=== PATIENT | male | born 1940 | race Caucasian/White ===

== ENCOUNTER 2017-08-06 18:31 | Inpatient (IN) | payer OTHER ==
[2017-08-06] MEDS ORDERED: 0.9 % SODIUM CHLORIDE 10 ML DISP.SYRIN. IV (19:45)
[2017-08-06] MEDS ORDERED: ONDANSETRON PF 4 MG/2 ML VIAL. IV (19:45)
[2017-08-06 21:18] LABS: INFLUENZA A PATIENT NEGATIVE (NEGATIVE); INFLUENZA B PATIENT NEGATIVE (NEGATIVE); OBC FLU VALID
[2017-08-06 21:19] LABS: BASO % 0 % (0-3); EOS # 0.1 x10^3/uL (0.0-0.7); EOS % 1 % (0-3); HEMATOCRIT 48.1 % (39.0-53.0); HEMOGLOBIN 16.1 g/dL (13.0-17.5); LYMPH # 0.8 x10^3/uL (1.0-4.8); LYMPH % 5 % (24-48); MEAN CORPUSCULAR HEMOGLOBIN 31 pg (25-35); MEAN CORPUSCULAR HGB CONC 33 g/dL (31-37); MEAN CORPUSCULAR VOLUME 93 fL (79-100); MONO # 0.9 x10^3/uL (0.0-1.1); MONO % 6 % (0-9); NEUT # 14.2 x10^3uL (1.8-7.7); NEUT % 89 % (31-73); PLATELET COUNT 130 x10^3/uL (140-400); RED CELL DISTRIBUTION WIDTH 14.5 % (11.5-14.5); WHITE BLOOD COUNT 15.9 x10^3/uL (4.0-11.0)
[2017-08-06 21:21] LABS: ADD MAN DIFF? YES
[2017-08-06] MEDS: IV NORMAL SALINE 1000ML BAG 1,000 ML IV (21:23)
[2017-08-06 21:28] LABS: MAGNESIUM 2.1 mg/dL (1.8-2.4)
[2017-08-06 21:28] LABS: ANION GAP 7 (6-14); BLOOD UREA NITROGEN 30 mg/dL (8-26); CALCIUM 8.7 mg/dL (8.5-10.1); CARBON DIOXIDE 30 mmol/L (21-32); CHLORIDE 91 mmol/L (98-107); GFR 72.6; GLUCOSE 72 mg/dL (70-99); POTASSIUM 4.8 mmol/L (3.5-5.1); SODIUM 128 mmol/L (136-145)
[2017-08-06 21:37] LABS: LACTIC ACID 0.7 mmol/L (0.4-2.0)
[2017-08-06 21:56] LABS: PROCALCITONIN 0.23 ng/mL (0.00-0.10)
[2017-08-06 22:06] LABS: % EOS 1 % (0-5); % LYMPHS 2 % (24-48); % MONOS 5 % (0-10); % SEGS 92 % (35-66); PLT ESTIMATE ADEQUATE (ADEQUATE)
[2017-08-06] MEDS: IV NORMAL SALINE 500ML BAG 500 ML IV (22:47)
[2017-08-06] MEDS: IPRATRPIUM/ALBUTEROL 0.5/2.5MG 3 ML NEBU. NEB (22:59)
[2017-08-07] MEDS: IV NORMAL SALINE 1000ML BAG 1,000 ML IV ×3 (04:01→23:24)
[2017-08-07] MEDS: ALBUTEROL SULFATE 2.5 MG/3 ML NEBU. NEB (04:18)
[2017-08-07 05:47] LABS: ADD MAN DIFF? NO
[2017-08-07 06:00] LABS: BASO % 0 % (0-3); EOS % 0 % (0-3); HEMATOCRIT 44.2 % (39.0-53.0); HEMOGLOBIN 14.6 g/dL (13.0-17.5); LYMPH # 0.6 x10^3/uL (1.0-4.8); LYMPH % 4 % (24-48); MEAN CORPUSCULAR HEMOGLOBIN 31 pg (25-35); MEAN CORPUSCULAR HGB CONC 33 g/dL (31-37); MEAN CORPUSCULAR VOLUME 93 fL (79-100); MONO # 1.1 x10^3/uL (0.0-1.1); MONO % 7 % (0-9); NEUT # 13.1 x10^3uL (1.8-7.7); NEUT % 88 % (31-73); PLATELET COUNT 116 x10^3/uL (140-400); RED BLOOD COUNT 4.75 x10^6/uL (4.30-5.70); RED CELL DISTRIBUTION WIDTH 14.8 % (11.5-14.5); WHITE BLOOD COUNT 14.9 x10^3/uL (4.0-11.0)
[2017-08-07 07:19] LABS: ANION GAP 11 (6-14); BLOOD UREA NITROGEN 28 mg/dL (8-26); CALCIUM 8.4 mg/dL (8.5-10.1); CARBON DIOXIDE 25 mmol/L (21-32); CHLORIDE 96 mmol/L (98-107); GFR 72.6; POTASSIUM 4.5 mmol/L (3.5-5.1); SODIUM 132 mmol/L (136-145)
[2017-08-07 07:26] LABS: GLUCOSE 39 mg/dL (70-99)
[2017-08-07 07:35] LABS: POC GLUCOSE 50 mg/dL (70-99)
[2017-08-07] MEDS: IPRATRPIUM/ALBUTEROL 0.5/2.5MG 3 ML NEBU. NEB ×4 (07:48→19:05)
[2017-08-07] MEDS: ELECTROLYTE (ICU) PROTOCOL. MC (08:10)
[2017-08-07] MEDS: ASPIRIN 325 MG TABLET PO (08:52)
[2017-08-07 09:58] LABS: POC GLUCOSE 105 mg/dL (70-99)
[2017-08-07] MEDS ORDERED: PIP/TAZO PER PHARMACY MC (11:45)
[2017-08-07] MEDS: PIPERACILLIN/TAZOBACTAM 3.375 GM in IV NORMAL SALINE 50ML 50 ML IV ×3 (12:00→23:54)
[2017-08-07] MEDS ORDERED: PIPERACILLIN/TAZOBACTAM 3.375 GM in IV DEXTROSE 5% 50 ML IV (12:00)
[2017-08-07] MEDS ORDERED: PIPERACILLIN/TAZOBACTAM 3.375 GM in IV NORMAL SALINE 50ML 50 ML IV (12:00)
[2017-08-07 15:16] LABS: MRSA BY PCR Negative (Negative)
[2017-08-07] MEDS: VANCOMYCIN 1.75 GM in IV DEXTROSE 5 %-0.2 % NACL 500 ML IV (15:24)
[2017-08-07] MEDS: VANCOMYCIN PER PHARMACY MC (15:30)
[2017-08-07] MEDS: HYDROCORTISONE SOD SUCC/PF 100 MG/2 ML VIAL. IV ×2 (15:31→21:35)
[2017-08-07 18:22] LABS: POC GLUCOSE 139 mg/dL (70-99)
[2017-08-07 20:39] LABS: POC GLUCOSE 150 mg/dL (70-99)
[2017-08-08] MEDS: VANCOMYCIN 1 GM in IV DEXTROSE 5% 250 ML IV (03:47)
[2017-08-08 05:43] LABS: BASO # 0.1 x10^3/uL (0.0-0.2); BASO % 0 % (0-3); EOS % 0 % (0-3); HEMATOCRIT 44.6 % (39.0-53.0); LYMPH # 0.5 x10^3/uL (1.0-4.8); LYMPH % 2 % (24-48); MEAN CORPUSCULAR HEMOGLOBIN 32 pg (25-35); MEAN CORPUSCULAR HGB CONC 34 g/dL (31-37); MEAN CORPUSCULAR VOLUME 94 fL (79-100); MONO # 0.4 x10^3/uL (0.0-1.1); MONO % 2 % (0-9); NEUT # 21.9 x10^3uL (1.8-7.7); NEUT % 96 % (31-73); PLATELET COUNT 107 x10^3/uL (140-400); RED BLOOD COUNT 4.75 x10^6/uL (4.30-5.70); RED CELL DISTRIBUTION WIDTH 15.2 % (11.5-14.5); WHITE BLOOD COUNT 22.8 x10^3/uL (4.0-11.0)
[2017-08-08] MEDS: PIPERACILLIN/TAZOBACTAM 3.375 GM in IV NORMAL SALINE 50ML 50 ML IV ×4 (05:50→23:01)
[2017-08-08] MEDS: HYDROCORTISONE SOD SUCC/PF 100 MG/2 ML VIAL. IV ×3 (05:50→21:18)
[2017-08-08 06:00] LABS: ADD MAN DIFF? YES
[2017-08-08 06:03] LABS: ALBUMIN 2.3 g/dL (3.4-5.0); ALBUMIN/GLOBULIN RATIO 0.6 (1.0-1.7); ALK PHOS 103 U/L (46-116); ALT (SGPT) 36 U/L (16-63); ANION GAP 6 (6-14); AST (SGOT) 29 U/L (15-37); BLOOD UREA NITROGEN 28 mg/dL (8-26); BUN/CREATININE RATIO 25 (6-20); CALCIUM 8.2 mg/dL (8.5-10.1); CARBON DIOXIDE 26 mmol/L (21-32); CHLORIDE 98 mmol/L (98-107); CREATININE 1.1 mg/dL (0.7-1.3); GFR 65.1; GLUCOSE 153 mg/dL (70-99); POTASSIUM 4.7 mmol/L (3.5-5.1); SODIUM 130 mmol/L (136-145); TOTAL BILIRUBIN 0.5 mg/dL (0.2-1.0); TOTAL PROTEIN 6.1 g/dL (6.4-8.2)
[2017-08-08] MEDS: IV NORMAL SALINE 1000ML BAG 1,000 ML IV ×4 (06:04→17:06)
[2017-08-08 06:24] LABS: THYROID STIM HORMONE (TSH) 0.369 uIU/mL (0.358-3.74)
[2017-08-08 07:22] LABS: % BANDS 2 % (0-9); % LYMPHS 3 % (24-48); % MONOS 2 % (0-10); % SEGS 93 % (35-66)
[2017-08-08 07:23] LABS: PLT ESTIMATE DECREASED (ADEQUATE)
[2017-08-08] MEDS: IPRATRPIUM/ALBUTEROL 0.5/2.5MG 3 ML NEBU. NEB ×4 (07:34→20:37)
[2017-08-08 08:33] LABS: POC GLUCOSE 130 mg/dL (70-99)
[2017-08-08] MEDS: ASPIRIN 325 MG TABLET PO (08:33)
[2017-08-08] MEDS: CALCIUM CARBONATE 500 MG TAB.CHEW PO ×2 (08:33→17:11)
[2017-08-08] MEDS: ELECTROLYTE (ICU) PROTOCOL. MC (09:00)
[2017-08-08] MEDS: POLYETHYLENE GLYCOL 3350 17 GM PACKET. PO (17:06)
[2017-08-08] MEDS: DOCUSATE SODIUM 100 MG CAPSULE. PO (21:18)
[2017-08-08] MEDS: LACTOBACILLUS RHAMNOSUS GG 1 CAPSULE. PO (21:18)
[2017-08-09] MEDS: IV NORMAL SALINE 1000ML BAG 1,000 ML IV ×2 (00:40→08:44)
[2017-08-09 06:33] LABS: HEMATOCRIT 34.9 % (39.0-53.0); HEMOGLOBIN 11.5 g/dL (13.0-17.5); MEAN CORPUSCULAR HEMOGLOBIN 31 pg (25-35); MEAN CORPUSCULAR HGB CONC 33 g/dL (31-37); MEAN CORPUSCULAR VOLUME 94 fL (79-100); PLATELET COUNT 98 x10^3/uL (140-400); RED BLOOD COUNT 3.71 x10^6/uL (4.30-5.70); RED CELL DISTRIBUTION WIDTH 15.3 % (11.5-14.5); WHITE BLOOD COUNT 16.2 x10^3/uL (4.0-11.0)
[2017-08-09] MEDS: PIPERACILLIN/TAZOBACTAM 3.375 GM in IV NORMAL SALINE 50ML 50 ML IV ×3 (06:42→18:14)
[2017-08-09] MEDS: HYDROCORTISONE SOD SUCC/PF 100 MG/2 ML VIAL. IV ×3 (06:42→21:18)
[2017-08-09 06:51] LABS: ALBUMIN 1.9 g/dL (3.4-5.0); ALBUMIN/GLOBULIN RATIO 0.6 (1.0-1.7); ALK PHOS 65 U/L (46-116); ALT (SGPT) 26 U/L (16-63); ANION GAP 6 (6-14); AST (SGOT) 25 U/L (15-37); BLOOD UREA NITROGEN 40 mg/dL (8-26); BUN/CREATININE RATIO 50 (6-20); CALCIUM 8.2 mg/dL (8.5-10.1); CARBON DIOXIDE 27 mmol/L (21-32); CHLORIDE 105 mmol/L (98-107); CREATININE 0.8 mg/dL (0.7-1.3); GLUCOSE 107 mg/dL (70-99); POTASSIUM 4.6 mmol/L (3.5-5.1); SODIUM 138 mmol/L (136-145); TOTAL BILIRUBIN 0.2 mg/dL (0.2-1.0); TOTAL PROTEIN 5.2 g/dL (6.4-8.2)
[2017-08-09] MEDS: IPRATRPIUM/ALBUTEROL 0.5/2.5MG 3 ML NEBU. NEB ×4 (07:44→18:31)
[2017-08-09] MEDS ORDERED: INFLUENZA VAX SCREEN BY RX. MC (09:00)
[2017-08-09] MEDS: ELECTROLYTE (ICU) PROTOCOL. MC (09:00)
[2017-08-09] MEDS: FLU VACC QS2017-18 (36MOS+)/PF 0.5 ML SYRINGE. VAX IM (09:00)
[2017-08-09] MEDS: DOCUSATE SODIUM 100 MG CAPSULE. PO ×2 (09:30→21:18)
[2017-08-09] MEDS: LACTOBACILLUS RHAMNOSUS GG 1 CAPSULE. PO ×2 (09:30→21:18)
[2017-08-09] MEDS: ASPIRIN 325 MG TABLET PO (09:30)
[2017-08-09] MEDS: POLYETHYLENE GLYCOL 3350 17 GM PACKET. PO (09:30)
[2017-08-09] MEDS: FUROSEMIDE 20 MG/2 ML VIAL. IVP (13:43)
[2017-08-09] MEDS ORDERED: DOCUSATE SODIUM 100 MG CAPSULE. PO (21:00)
[2017-08-10] MEDS: PIPERACILLIN/TAZOBACTAM 3.375 GM in IV NORMAL SALINE 50ML 50 ML IV ×4 (01:11→21:26)
[2017-08-10] MEDS: ALBUTEROL SULFATE 2.5 MG/3 ML NEBU. NEB (02:01)
[2017-08-10] MEDS: HYDROCORTISONE SOD SUCC/PF 100 MG/2 ML VIAL. IV ×3 (06:07→21:26)
[2017-08-10 06:38] LABS: ANION GAP 7 (6-14); BLOOD UREA NITROGEN 59 mg/dL (8-26); CARBON DIOXIDE 28 mmol/L (21-32); CHLORIDE 108 mmol/L (98-107); CREATININE 0.8 mg/dL (0.7-1.3); GLUCOSE 108 mg/dL (70-99); SODIUM 143 mmol/L (136-145)
[2017-08-10] MEDS: IPRATRPIUM/ALBUTEROL 0.5/2.5MG 3 ML NEBU. NEB ×4 (07:44→20:26)
[2017-08-10] MEDS: ASPIRIN 325 MG TABLET PO (08:00)
[2017-08-10 08:55] LABS: RED BLOOD COUNT 1.86 x10^6/uL (4.30-5.70); WHITE BLOOD COUNT 16.5 x10^3/uL (4.0-11.0)
[2017-08-10 08:56] LABS: HEMATOCRIT 17.5 % (39.0-53.0); HEMOGLOBIN 5.8 g/dL (13.0-17.5); MEAN CORPUSCULAR HEMOGLOBIN 31 pg (25-35); MEAN CORPUSCULAR HGB CONC 33 g/dL (31-37); MEAN CORPUSCULAR VOLUME 94 fL (79-100); PLATELET COUNT 103 x10^3/uL (140-400); RED CELL DISTRIBUTION WIDTH 14.8 % (11.5-14.5)
[2017-08-10] MEDS: ELECTROLYTE (ICU) PROTOCOL. MC (09:00)
[2017-08-10] MEDS: POLYETHYLENE GLYCOL 3350 17 GM PACKET. PO (09:00)
[2017-08-10] MEDS ORDERED: POLYETHYLENE GLYCOL 3350 17 GM PACKET. PO (09:00)
[2017-08-10 10:02] LABS: ADD MAN DIFF? NO
[2017-08-10 10:06] LABS: BASO % 0 % (0-3); EOS % 0 % (0-3); LYMPH # 0.7 x10^3/uL (1.0-4.8); LYMPH % 4 % (24-48); MEAN CORPUSCULAR HEMOGLOBIN 31 pg (25-35); MEAN CORPUSCULAR HGB CONC 33 g/dL (31-37); MEAN CORPUSCULAR VOLUME 94 fL (79-100); MONO % 6 % (0-9); NEUT # 15.9 x10^3uL (1.8-7.7); NEUT % 90 % (31-73); PLATELET COUNT 99 x10^3/uL (140-400); RED BLOOD COUNT 1.74 x10^6/uL (4.30-5.70); RED CELL DISTRIBUTION WIDTH 15.5 % (11.5-14.5); WHITE BLOOD COUNT 17.6 x10^3/uL (4.0-11.0)
[2017-08-10 10:17] LABS: HEMATOCRIT 16.4 % (39.0-53.0); HEMOGLOBIN 5.4 g/dL (13.0-17.5)
[2017-08-10 13:42] LABS: INR 1.2 (0.8-1.1); PARTIAL THROMBOPLASTIN TIME 25 SEC (24-38); PROTHROMBIN TIME PATIENT 14.8 SEC (11.7-14.0)
[2017-08-10] MEDS: METOCLOPRAMIDE HCL 10 MG/2 ML VIAL. IV (13:51)
[2017-08-10] MEDS: PANTOPRAZOLE IV PUSH 40 MG VIAL. IVP (13:51)
[2017-08-10] MEDS ORDERED: PROPOFOL 20 ML IV (14:14)
[2017-08-10] MEDS ORDERED: LIDOCAINE 2% 100 MG/5 ML SYRINGE. (14:14)
[2017-08-10] MEDS: EPINEPHrine SYRINGE 1 MG/10 ML SYRINGE SQ (14:35)
[2017-08-10] MEDS ORDERED: EPINEPHrine SYRINGE 1 MG/10 ML SYRINGE (15:01)
[2017-08-10] MEDS ORDERED: NOREPINEPHRIN PREMIX 250 ML IV (15:15)
[2017-08-10] MEDS ORDERED: NOREPINEPHRINE PREMIX 8 MG/250 ML BAG. IV (15:15)
[2017-08-10] MEDS: MIDAZOLAM 100MG/100ML PREMIX 100 ML IV (15:20)
[2017-08-10] MEDS: PANTOPRAZOLE SODIUM IV DRIP 80 MG in IV NORMAL SALINE 100ML 100 ML IV (16:10)
[2017-08-10 16:24] LABS: BASE EXCESS ABG -3 mmol/L (-3-3); HCO3 ABG 25 mmol/L (21-28); PH ABG 7.23 (7.35-7.45); PO2 ABG 277 mmHg (65-108); SAT O2 ABG 99 % (92-99)
[2017-08-10 16:26] LABS: FIO2 ABG 100; PCO2 ABG 61 mmHg (35-46)
[2017-08-10 18:34] LABS: HEMOGLOBIN 9.7 g/dL (13.0-17.5)
[2017-08-10 19:35] LABS: LACTIC ACID 3.2 mmol/L (0.4-2.0)
[2017-08-10] MEDS: IV NORMAL SALINE 1000ML BAG 1,000 ML IV ×2 (19:58→20:48)
[2017-08-10] MEDS: DOCUSATE SODIUM 100 MG CAPSULE. PO (20:27)
[2017-08-10] MEDS: LACTOBACILLUS RHAMNOSUS GG 1 CAPSULE. PO (20:27)
[2017-08-10 23:36] LABS: LACTIC ACID 2.6 mmol/L (0.4-2.0)
[2017-08-11] MEDS: PIPERACILLIN/TAZOBACTAM 3.375 GM in IV NORMAL SALINE 50ML 50 ML IV ×4 (00:24→17:35)
[2017-08-11] MEDS: PANTOPRAZOLE SODIUM IV DRIP 80 MG in IV NORMAL SALINE 100ML 100 ML IV ×3 (00:25→21:51)
[2017-08-11] MEDS: NOREPINEPHRIN PREMIX 250 ML IV (00:25)
[2017-08-11] MEDS: IV NORMAL SALINE 1000ML BAG 1,000 ML IV ×4 (04:23→19:30)
[2017-08-11] MEDS: MIDAZOLAM 100MG/100ML PREMIX 100 ML IV (04:24)
[2017-08-11 04:42] LABS: BASO % 0 % (0-3); EOS % 0 % (0-3); LYMPH # 0.9 x10^3/uL (1.0-4.8); LYMPH % 3 % (24-48); MEAN CORPUSCULAR HEMOGLOBIN 31 pg (25-35); MEAN CORPUSCULAR HGB CONC 35 g/dL (31-37); MEAN CORPUSCULAR VOLUME 91 fL (79-100); MONO % 7 % (0-9); NEUT # 25.6 x10^3uL (1.8-7.7); NEUT % 90 % (31-73); PLATELET COUNT 128 x10^3/uL (140-400); RED BLOOD COUNT 2.87 x10^6/uL (4.30-5.70); RED CELL DISTRIBUTION WIDTH 15.1 % (11.5-14.5); WHITE BLOOD COUNT 28.6 x10^3/uL (4.0-11.0)
[2017-08-11 05:06] LABS: ADD MAN DIFF? YES
[2017-08-11 05:09] LABS: ALBUMIN 1.7 g/dL (3.4-5.0); ALBUMIN/GLOBULIN RATIO 0.6 (1.0-1.7); ALK PHOS 51 U/L (46-116); ALT (SGPT) 24 U/L (16-63); ANION GAP 7 (6-14); AST (SGOT) 28 U/L (15-37); BLOOD UREA NITROGEN 62 mg/dL (8-26); BUN/CREATININE RATIO 56 (6-20); CALCIUM 7.2 mg/dL (8.5-10.1); CARBON DIOXIDE 25 mmol/L (21-32); CHLORIDE 115 mmol/L (98-107); CREATININE 1.1 mg/dL (0.7-1.3); GFR 65.1; GLUCOSE 137 mg/dL (70-99); SODIUM 147 mmol/L (136-145); TOTAL BILIRUBIN 0.5 mg/dL (0.2-1.0); TOTAL PROTEIN 4.4 g/dL (6.4-8.2)
[2017-08-11] MEDS: HYDROCORTISONE SOD SUCC/PF 100 MG/2 ML VIAL. IV ×3 (05:40→21:25)
[2017-08-11] MEDS: IPRATRPIUM/ALBUTEROL 0.5/2.5MG 3 ML NEBU. NEB ×4 (07:49→19:41)
[2017-08-11] MEDS: DOCUSATE SODIUM 100 MG CAPSULE. PO ×2 (09:00→20:26)
[2017-08-11] MEDS: ELECTROLYTE (ICU) PROTOCOL. MC (09:00)
[2017-08-11] MEDS: POLYETHYLENE GLYCOL 3350 17 GM PACKET. PO (09:00)
[2017-08-11 09:25] LABS: BASE EXCESS ABG 0 mmol/L (-3-3); HCO3 ABG 23 mmol/L (21-28); PCO2 ABG 32 mmHg (35-46); PH ABG 7.48 (7.35-7.45); PO2 ABG 90 mmHg (65-108); SAT O2 ABG 96 % (92-99)
[2017-08-11 10:02] LABS: FIO2 ABG 40
[2017-08-11 10:24] LABS: % LYMPHS 4 % (24-48); % MONOS 3 % (0-10); % SEGS 93 % (35-66); PLT ESTIMATE ADEQUATE (ADEQUATE)
[2017-08-11 10:25] LABS: HYPOCHROMIA SLIGHT
[2017-08-11 12:54] LABS: HEMATOCRIT 23.2 % (39.0-53.0)
[2017-08-11 12:54] LABS: HEMOGLOBIN 7.9 g/dL (13.0-17.5)
[2017-08-11] MEDS: ASPIRIN 325 MG TABLET PO (13:21)
[2017-08-11] MEDS: LACTOBACILLUS RHAMNOSUS GG 1 CAPSULE. PO ×2 (13:21→21:25)
[2017-08-11 14:27] LABS: HEMOGLOBIN 7.5 g/dL (13.0-17.5)
[2017-08-11] MEDS ORDERED: PROPOFOL 100 ML IV (17:30)
[2017-08-11] MEDS: PROPOFOL 100 ML IV (17:31)
[2017-08-11 21:13] LABS: MRSA BY PCR Negative (Negative)
[2017-08-11 22:47] LABS: HEMOGLOBIN 6.8 g/dL (13.0-17.5)
[2017-08-11 23:27] LABS: IMMEDIATE SPIN CROSSMATCH 1 6
[2017-08-12] MEDS: PIPERACILLIN/TAZOBACTAM 3.375 GM in IV NORMAL SALINE 50ML 50 ML IV ×4 (00:11→23:34)
[2017-08-12] MEDS: PROPOFOL 100 ML IV ×2 (00:12→19:19)
[2017-08-12] MEDS: IV NORMAL SALINE 1000ML BAG 1,000 ML IV (00:12)
[2017-08-12 03:50] LABS: HEMATOCRIT 21.5 % (39.0-53.0); HEMOGLOBIN 7.4 g/dL (13.0-17.5); MEAN CORPUSCULAR HEMOGLOBIN 31 pg (25-35); MEAN CORPUSCULAR HGB CONC 35 g/dL (31-37); MEAN CORPUSCULAR VOLUME 90 fL (79-100); PLATELET COUNT 97 x10^3/uL (140-400); RED CELL DISTRIBUTION WIDTH 14.6 % (11.5-14.5); WHITE BLOOD COUNT 17.5 x10^3/uL (4.0-11.0)
[2017-08-12 04:08] LABS: ALBUMIN 1.4 g/dL (3.4-5.0); ALBUMIN/GLOBULIN RATIO 0.6 (1.0-1.7); ALK PHOS 43 U/L (46-116); ALT (SGPT) 11 U/L (16-63); ANION GAP 7 (6-14); AST (SGOT) 25 U/L (15-37); BLOOD UREA NITROGEN 42 mg/dL (8-26); BUN/CREATININE RATIO 47 (6-20); CALCIUM 6.7 mg/dL (8.5-10.1); CARBON DIOXIDE 26 mmol/L (21-32); CHLORIDE 122 mmol/L (98-107); CREATININE 0.9 mg/dL (0.7-1.3); GLUCOSE 119 mg/dL (70-99); SODIUM 155 mmol/L (136-145); TOTAL BILIRUBIN 0.4 mg/dL (0.2-1.0); TOTAL PROTEIN 3.8 g/dL (6.4-8.2)
[2017-08-12] MEDS: HYDROCORTISONE SOD SUCC/PF 100 MG/2 ML VIAL. IV ×3 (05:48→21:10)
[2017-08-12] MEDS: IPRATRPIUM/ALBUTEROL 0.5/2.5MG 3 ML NEBU. NEB ×5 (07:10→19:43)
[2017-08-12 07:23] LABS: BASE EXCESS ABG 0 mmol/L (-3-3); HCO3 ABG 23 mmol/L (21-28); PCO2 ABG 31 mmHg (35-46); PH ABG 7.48 (7.35-7.45); PO2 ABG 78 mmHg (65-108); SAT O2 ABG 95 % (92-99)
[2017-08-12] MEDS: POLYETHYLENE GLYCOL 3350 17 GM PACKET. PO (07:35)
[2017-08-12] MEDS: ASPIRIN 325 MG TABLET PO (08:00)
[2017-08-12] MEDS: DOCUSATE SODIUM 100 MG CAPSULE. PO ×2 (08:08→21:10)
[2017-08-12] MEDS: LACTOBACILLUS RHAMNOSUS GG 1 CAPSULE. PO ×2 (08:08→21:10)
[2017-08-12] MEDS: ELECTROLYTE (ICU) PROTOCOL. MC (08:23)
[2017-08-12 08:25] LABS: FIO2 ABG 40
[2017-08-12] MEDS ORDERED: DEXTROSE 5% IV (08:30)
[2017-08-12] MEDS ORDERED: POTASSIUM CHLORIDE IV (08:30)
[2017-08-12] MEDS: DEXTROSE 5% IV (08:39)
[2017-08-12] MEDS: POTASSIUM CHLORIDE IV (08:39)
[2017-08-12] MEDS: PANTOPRAZOLE SODIUM IV DRIP 80 MG in IV NORMAL SALINE 100ML 100 ML IV ×2 (08:41→18:12)
[2017-08-12 13:43] LABS: HEMOGLOBIN 8.6 g/dL (13.0-17.5)
[2017-08-12] MEDS: POTASSIUM CHLORIDE 40 MEQ in IV DEXTROSE 5% 1,000 ML IV (18:12)
[2017-08-12 21:21] LABS: HEMOGLOBIN 7.8 g/dL (13.0-17.5)
[2017-08-13] MEDS: PROPOFOL 100 ML IV ×2 (00:53→05:09)
[2017-08-13] MEDS: POTASSIUM CHLORIDE 40 MEQ in IV DEXTROSE 5% 1,000 ML IV ×4 (02:54→22:05)
[2017-08-13 05:33] LABS: HEMOGLOBIN 7.5 g/dL (13.0-17.5)
[2017-08-13 05:47] LABS: ANION GAP 7 (6-14); BLOOD UREA NITROGEN 27 mg/dL (8-26); CALCIUM 6.9 mg/dL (8.5-10.1); CARBON DIOXIDE 25 mmol/L (21-32); CHLORIDE 120 mmol/L (98-107); CREATININE 0.8 mg/dL (0.7-1.3); GLUCOSE 190 mg/dL (70-99); POTASSIUM 3.6 mmol/L (3.5-5.1); SODIUM 152 mmol/L (136-145)
[2017-08-13] MEDS: HYDROCORTISONE SOD SUCC/PF 100 MG/2 ML VIAL. IV ×3 (06:13→20:54)
[2017-08-13] MEDS: PANTOPRAZOLE SODIUM IV DRIP 80 MG in IV NORMAL SALINE 100ML 100 ML IV ×2 (06:13→16:28)
[2017-08-13] MEDS: PIPERACILLIN/TAZOBACTAM 3.375 GM in IV NORMAL SALINE 50ML 50 ML IV ×4 (06:13→23:54)
[2017-08-13] MEDS: ASPIRIN 325 MG TABLET PO (08:00)
[2017-08-13 08:21] LABS: BASE EXCESS ABG -2 mmol/L (-3-3); HCO3 ABG 22 mmol/L (21-28); PCO2 ABG 33 mmHg (35-46); PH ABG 7.45 (7.35-7.45); PO2 ABG 82 mmHg (65-108); SAT O2 ABG 95 % (92-99)
[2017-08-13] MEDS: DOCUSATE SODIUM 100 MG CAPSULE. PO ×2 (09:00→20:58)
[2017-08-13] MEDS: POLYETHYLENE GLYCOL 3350 17 GM PACKET. PO (09:00)
[2017-08-13] MEDS: ELECTROLYTE (ICU) PROTOCOL. MC (09:00)
[2017-08-13] MEDS: LACTOBACILLUS RHAMNOSUS GG 1 CAPSULE. PO ×2 (09:00→20:58)
[2017-08-13 09:24] LABS: FIO2 ABG 40
[2017-08-13 09:34] LABS: BASE EXCESS ABG -2 mmol/L (-3-3); HCO3 ABG 23 mmol/L (21-28); PCO2 ABG 38 mmHg (35-46); PO2 ABG 89 mmHg (65-108); SAT O2 ABG 95 % (92-99)
[2017-08-13 09:35] LABS: FIO2 ABG 40
[2017-08-13] MEDS: IPRATRPIUM/ALBUTEROL 0.5/2.5MG 3 ML NEBU. NEB ×3 (11:35→19:21)
[2017-08-13 15:06] LABS: HEMATOCRIT 24.1 % (39.0-53.0)
[2017-08-13 15:06] LABS: HEMOGLOBIN 8.2 g/dL (13.0-17.5)
[2017-08-13] MEDS: FUROSEMIDE 40 MG/4 ML VIAL. IVP (16:27)
[2017-08-13] MEDS: BUDESONIDE 0.5 MG/2 ML NEBU. NEB (19:21)
[2017-08-13] MEDS ORDERED: EPINEPHrine SYRINGE 1 MG/10 ML SYRINGE (19:24)
[2017-08-13] MEDS ORDERED: MIDAZOLAM HCL/PF 5 MG/5 ML VIAL. (19:24)
[2017-08-13] MEDS ORDERED: SODIUM BICARB ADULT 8.4% 50 MEQ/50 ML DISP.SYRIN. (19:24)
[2017-08-14] MEDS: PANTOPRAZOLE SODIUM IV DRIP 80 MG in IV NORMAL SALINE 100ML 100 ML IV ×2 (00:42→14:16)
[2017-08-14 05:42] LABS: HEMATOCRIT 22.9 % (39.0-53.0); HEMOGLOBIN 7.8 g/dL (13.0-17.5); MEAN CORPUSCULAR HEMOGLOBIN 32 pg (25-35); MEAN CORPUSCULAR HGB CONC 34 g/dL (31-37); MEAN CORPUSCULAR VOLUME 93 fL (79-100); PLATELET COUNT 145 x10^3/uL (140-400); RED BLOOD COUNT 2.46 x10^6/uL (4.30-5.70); RED CELL DISTRIBUTION WIDTH 15.5 % (11.5-14.5); WHITE BLOOD COUNT 23.8 x10^3/uL (4.0-11.0)
[2017-08-14 05:53] LABS: ANION GAP 6 (6-14); BLOOD UREA NITROGEN 19 mg/dL (8-26); CARBON DIOXIDE 29 mmol/L (21-32); CHLORIDE 117 mmol/L (98-107); CREATININE 0.8 mg/dL (0.7-1.3); GLUCOSE 138 mg/dL (70-99); POTASSIUM 3.6 mmol/L (3.5-5.1); SODIUM 152 mmol/L (136-145)
[2017-08-14] MEDS: HYDROCORTISONE SOD SUCC/PF 100 MG/2 ML VIAL. IV ×3 (06:19→21:44)
[2017-08-14] MEDS: PIPERACILLIN/TAZOBACTAM 3.375 GM in IV NORMAL SALINE 50ML 50 ML IV ×3 (06:19→18:33)
[2017-08-14] MEDS: POTASSIUM CHLORIDE 40 MEQ in IV DEXTROSE 5% 1,000 ML IV ×2 (06:19→15:54)
[2017-08-14] MEDS: BUDESONIDE 0.5 MG/2 ML NEBU. NEB ×2 (07:35→19:37)
[2017-08-14] MEDS: IPRATRPIUM/ALBUTEROL 0.5/2.5MG 3 ML NEBU. NEB ×4 (07:35→19:37)
[2017-08-14] MEDS: ASPIRIN 325 MG TABLET PO (08:00)
[2017-08-14] MEDS: ELECTROLYTE (ICU) PROTOCOL. MC (08:28)
[2017-08-14] MEDS: POLYETHYLENE GLYCOL 3350 17 GM PACKET. PO (08:28)
[2017-08-14] MEDS: DOCUSATE SODIUM 100 MG CAPSULE. PO ×2 (08:28→21:00)
[2017-08-14] MEDS: LACTOBACILLUS RHAMNOSUS GG 1 CAPSULE. PO ×2 (08:28→21:00)
[2017-08-14] MEDS: NOREPINEPHRIN PREMIX 250 ML IV ×2 (10:09→18:34)
[2017-08-14] MEDS: IV 1/2 NORMAL SALINE 1,000 ML IV (10:13)
[2017-08-14 12:13] LABS: BASE EXCESS ABG 0 mmol/L (-3-3); HCO3 ABG 24 mmol/L (21-28); PCO2 ABG 37 mmHg (35-46); PH ABG 7.43 (7.35-7.45); PO2 ABG 64 mmHg (65-108); SAT O2 ABG 91 % (92-99)
[2017-08-14 12:23] LABS: FIO2 ABG 28
[2017-08-14 12:41] LABS: MEAN CORPUSCULAR HEMOGLOBIN 31 pg (25-35); MEAN CORPUSCULAR HGB CONC 33 g/dL (31-37); MEAN CORPUSCULAR VOLUME 94 fL (79-100); PLATELET COUNT 156 x10^3/uL (140-400); RED BLOOD COUNT 1.65 x10^6/uL (4.30-5.70); RED CELL DISTRIBUTION WIDTH 14.9 % (11.5-14.5); WHITE BLOOD COUNT 30.6 x10^3/uL (4.0-11.0)
[2017-08-14 12:50] LABS: HEMATOCRIT 15.5 % (39.0-53.0); HEMOGLOBIN 5.1 g/dL (13.0-17.5)
[2017-08-14] MEDS: IV NORMAL SALINE 1000ML BAG 1,000 ML IV (13:36)
[2017-08-14] MEDS: IV NORMAL SALINE 500ML BAG 500 ML IV ×2 (13:36→21:48)
[2017-08-14 14:22] LABS: INR 1.2 (0.8-1.1); PROTHROMBIN TIME PATIENT 14.6 SEC (11.7-14.0)
[2017-08-14 14:30] LABS: IMMEDIATE SPIN CROSSMATCH 1 5
[2017-08-14] MEDS: EPINEPHrine SYRINGE 1 MG/10 ML SYRINGE IV (14:59)
[2017-08-14] MEDS ORDERED: LIDOCAINE WITH 8.4% SOD BICARB 3 ML DISP.SYRIN. (15:21)
[2017-08-14] MEDS ORDERED: IOHEXOL 300 MG/ML 100ML VIAL. (15:21)
[2017-08-14] MEDS ORDERED: EPINEPHrine SYRINGE 1 MG/10 ML SYRINGE (15:33)
[2017-08-14 16:37] LABS: HEMATOCRIT 29.4 % (39.0-53.0); HEMOGLOBIN 9.8 g/dL (13.0-17.5); MEAN CORPUSCULAR HEMOGLOBIN 31 pg (25-35); MEAN CORPUSCULAR HGB CONC 33 g/dL (31-37); MEAN CORPUSCULAR VOLUME 93 fL (79-100); PLATELET COUNT 157 x10^3/uL (140-400); RED BLOOD COUNT 3.16 x10^6/uL (4.30-5.70); RED CELL DISTRIBUTION WIDTH 13.9 % (11.5-14.5); WHITE BLOOD COUNT 34.8 x10^3/uL (4.0-11.0)
[2017-08-14 20:05] LABS: HEMOGLOBIN 8.7 g/dL (13.0-17.5); MEAN CORPUSCULAR HGB CONC 33 g/dL (31-37)
[2017-08-14] MEDS: FUROSEMIDE 20 MG/2 ML VIAL. IVP (21:45)
[2017-08-15] MEDS: PANTOPRAZOLE SODIUM IV DRIP 80 MG in IV NORMAL SALINE 100ML 100 ML IV ×2 (01:02→13:07)
[2017-08-15] MEDS: PIPERACILLIN/TAZOBACTAM 3.375 GM in IV NORMAL SALINE 50ML 50 ML IV ×4 (01:02→17:58)
[2017-08-15] MEDS: POTASSIUM CHLORIDE 40 MEQ in IV DEXTROSE 5% 1,000 ML IV ×2 (01:03→10:43)
[2017-08-15 01:04] LABS: HEMATOCRIT 22.9 % (39.0-53.0); HEMOGLOBIN 7.8 g/dL (13.0-17.5); MEAN CORPUSCULAR HGB CONC 34 g/dL (31-37)
[2017-08-15 05:59] LABS: ADD MAN DIFF? NO
[2017-08-15] MEDS: HYDROCORTISONE SOD SUCC/PF 100 MG/2 ML VIAL. IV (06:05)
[2017-08-15 06:14] LABS: ANION GAP 5 (6-14); BLOOD UREA NITROGEN 34 mg/dL (8-26); CALCIUM 6.6 mg/dL (8.5-10.1); CARBON DIOXIDE 25 mmol/L (21-32); CHLORIDE 115 mmol/L (98-107); CREATININE 1.4 mg/dL (0.7-1.3); GFR 49.3; GLUCOSE 142 mg/dL (70-99); POTASSIUM 4.8 mmol/L (3.5-5.1); SODIUM 145 mmol/L (136-145)
[2017-08-15 06:17] LABS: BASO % 0 % (0-3); EOS % 0 % (0-3); HEMOGLOBIN 7.7 g/dL (13.0-17.5); LYMPH # 1.8 x10^3/uL (1.0-4.8); LYMPH % 8 % (24-48); MEAN CORPUSCULAR HEMOGLOBIN 32 pg (25-35); MEAN CORPUSCULAR HGB CONC 35 g/dL (31-37); MEAN CORPUSCULAR VOLUME 93 fL (79-100); MONO # 1.7 x10^3/uL (0.0-1.1); MONO % 7 % (0-9); NEUT # 19.3 x10^3uL (1.8-7.7); NEUT % 85 % (31-73); PLATELET COUNT 154 x10^3/uL (140-400); RED BLOOD COUNT 2.38 x10^6/uL (4.30-5.70); RED CELL DISTRIBUTION WIDTH 13.7 % (11.5-14.5); WHITE BLOOD COUNT 22.8 x10^3/uL (4.0-11.0)
[2017-08-15] MEDS: ALBUTEROL SULFATE 2.5 MG/3 ML NEBU. NEB (06:25)
[2017-08-15] MEDS: DOCUSATE SODIUM 100 MG CAPSULE. PO ×2 (07:32→21:00)
[2017-08-15] MEDS: POLYETHYLENE GLYCOL 3350 17 GM PACKET. PO (07:32)
[2017-08-15] MEDS: ASPIRIN 325 MG TABLET PO (07:32)
[2017-08-15] MEDS: LACTOBACILLUS RHAMNOSUS GG 1 CAPSULE. PO ×2 (07:32→21:00)
[2017-08-15] MEDS: ELECTROLYTE (ICU) PROTOCOL. MC (07:33)
[2017-08-15] MEDS: IPRATRPIUM/ALBUTEROL 0.5/2.5MG 3 ML NEBU. NEB ×4 (08:05→19:52)
[2017-08-15] MEDS: BUDESONIDE 0.5 MG/2 ML NEBU. NEB ×2 (08:05→19:52)
[2017-08-15] MEDS: methylPREDNISolone SOD SUCC PF 40 MG/ML VIAL. IV (14:00)
[2017-08-15 19:48] LABS: HEMOGLOBIN 7.1 g/dL (13.0-17.5)
[2017-08-15 19:49] LABS: HEMATOCRIT 21.9 % (39.0-53.0)
[2017-08-16] MEDS: PANTOPRAZOLE SODIUM IV DRIP 80 MG in IV NORMAL SALINE 100ML 100 ML IV ×4 (01:13→20:10)
[2017-08-16] MEDS: PIPERACILLIN/TAZOBACTAM 3.375 GM in IV NORMAL SALINE 50ML 50 ML IV ×5 (01:13→23:55)
[2017-08-16] MEDS: POTASSIUM CHLORIDE 40 MEQ in IV DEXTROSE 5% 1,000 ML IV ×4 (01:14→14:30)
[2017-08-16] MEDS: methylPREDNISolone SOD SUCC PF 40 MG/ML VIAL. IV ×4 (01:14→21:43)
[2017-08-16 06:38] LABS: BASO # 0.1 x10^3/uL (0.0-0.2); BASO % 0 % (0-3); EOS % 0 % (0-3); HEMATOCRIT 26.6 % (39.0-53.0); LYMPH # 0.9 x10^3/uL (1.0-4.8); LYMPH % 3 % (24-48); MEAN CORPUSCULAR HEMOGLOBIN 31 pg (25-35); MEAN CORPUSCULAR HGB CONC 34 g/dL (31-37); MEAN CORPUSCULAR VOLUME 91 fL (79-100); MONO # 1.1 x10^3/uL (0.0-1.1); MONO % 4 % (0-9); NEUT # 25.5 x10^3uL (1.8-7.7); NEUT % 92 % (31-73); PLATELET COUNT 190 x10^3/uL (140-400); RED BLOOD COUNT 2.91 x10^6/uL (4.30-5.70); RED CELL DISTRIBUTION WIDTH 14.9 % (11.5-14.5); WHITE BLOOD COUNT 27.6 x10^3/uL (4.0-11.0)
[2017-08-16 06:42] LABS: ADD MAN DIFF? YES
[2017-08-16 07:01] LABS: ALBUMIN 1.7 g/dL (3.4-5.0); ALBUMIN/GLOBULIN RATIO 0.6 (1.0-1.7); ALK PHOS 71 U/L (46-116); ALT (SGPT) 39 U/L (16-63); ANION GAP 9 (6-14); AST (SGOT) 51 U/L (15-37); BLOOD UREA NITROGEN 32 mg/dL (8-26); BUN/CREATININE RATIO 27 (6-20); CALCIUM 7.1 mg/dL (8.5-10.1); CARBON DIOXIDE 23 mmol/L (21-32); CHLORIDE 115 mmol/L (98-107); CREATININE 1.2 mg/dL (0.7-1.3); GFR 58.9; GLUCOSE 114 mg/dL (70-99); POTASSIUM 4.8 mmol/L (3.5-5.1); SODIUM 147 mmol/L (136-145); TOTAL BILIRUBIN 0.6 mg/dL (0.2-1.0); TOTAL PROTEIN 4.7 g/dL (6.4-8.2)
[2017-08-16] MEDS: BUDESONIDE 0.5 MG/2 ML NEBU. NEB ×2 (07:57→19:44)
[2017-08-16] MEDS: IPRATRPIUM/ALBUTEROL 0.5/2.5MG 3 ML NEBU. NEB ×4 (07:57→19:44)
[2017-08-16] MEDS: POLYETHYLENE GLYCOL 3350 17 GM PACKET. PO (08:31)
[2017-08-16] MEDS: ELECTROLYTE (ICU) PROTOCOL. MC (08:31)
[2017-08-16] MEDS: DOCUSATE SODIUM 100 MG CAPSULE. PO ×2 (08:31→21:00)
[2017-08-16] MEDS ORDERED: MAGNESIUM SULFATE 2GM 50 ML IV (08:45)
[2017-08-16] MEDS ORDERED: LORazepam 1 MG TABLET PO ×2 (08:45)
[2017-08-16] MEDS: LACTOBACILLUS RHAMNOSUS GG 1 CAPSULE. PO ×2 (09:00→21:00)
[2017-08-16 09:47] LABS: % BANDS 3 % (0-9); % LYMPHS 1 % (24-48); % MONOS 2 % (0-10); % SEGS 94 % (35-66)
[2017-08-16 09:48] LABS: ANISOCYTOSIS MOD; PLT ESTIMATE ADEQUATE (ADEQUATE)
[2017-08-16 09:54] LABS: PREALBUMIN 20.5 mg/dL (16.0-42.0)
[2017-08-16] MEDS ORDERED: PROPOFOL 10 MG/ML (20ML) VIAL. IV (12:00)
[2017-08-16] MEDS: FUROSEMIDE 20 MG/2 ML VIAL. IVP (12:47)
[2017-08-16 13:17] LABS: BILIRUBIN,URINE NEGATIVE (NEG); CLARITY,URINE CLEAR; COLOR,URINE YELLOW; GLUCOSE,URINE NEGATIVE (NEG); NITRITE,URINE NEGATIVE (NEG); PH,URINE 5.5; PROTEIN,URINE NEGATIVE (NEG-TRACE); UROBILINOGEN,URINE 0.2 mg/dL (0.2 mg/dL)
[2017-08-16 13:23] LABS: SQUAMOUS EPITHELIAL CELL,UR OCC /LPF
[2017-08-16 13:24] LABS: BACTERIA,URINE 0 /HPF (0-FEW); RBC,URINE 0 /HPF (0-2); WBC,URINE OCC /HPF (0-4)
[2017-08-16 17:29] LABS: HEMOGLOBIN 8.8 g/dL (13.0-17.5)
[2017-08-16 17:29] LABS: HEMATOCRIT 26.2 % (39.0-53.0)
[2017-08-16] MEDS: AMINO AC 3%/ELECTROLYTE/GLYCER 1,000 ML IV (17:37)
[2017-08-16 21:10] LABS: TOTAL PROTEIN CREATININE RATIO 344 mg/g creat (0-200); UR CREATININE RD 78.1 mg/dL (Not Estab.); UR PROTEIN RD 26.9 mg/dL (Not Estab.)
[2017-08-17] MEDS: IPRATRPIUM/ALBUTEROL 0.5/2.5MG 3 ML NEBU. NEB ×5 (02:43→19:28)
[2017-08-17 05:10] LABS: HEMATOCRIT 24.8 % (39.0-53.0); HEMOGLOBIN 8.4 g/dL (13.0-17.5); MEAN CORPUSCULAR HEMOGLOBIN 31 pg (25-35); MEAN CORPUSCULAR HGB CONC 34 g/dL (31-37); MEAN CORPUSCULAR VOLUME 92 fL (79-100); PLATELET COUNT 239 x10^3/uL (140-400); RED BLOOD COUNT 2.68 x10^6/uL (4.30-5.70); RED CELL DISTRIBUTION WIDTH 15.1 % (11.5-14.5)
[2017-08-17] MEDS: AMINO AC 3%/ELECTROLYTE/GLYCER 1,000 ML IV ×2 (05:29→17:32)
[2017-08-17] MEDS: PIPERACILLIN/TAZOBACTAM 3.375 GM in IV NORMAL SALINE 50ML 50 ML IV ×3 (05:30→17:32)
[2017-08-17] MEDS: methylPREDNISolone SOD SUCC PF 40 MG/ML VIAL. IV (05:30)
[2017-08-17 05:59] LABS: ALBUMIN 1.7 g/dL (3.4-5.0); ALBUMIN/GLOBULIN RATIO 0.6 (1.0-1.7); ALK PHOS 68 U/L (46-116); ALT (SGPT) 44 U/L (16-63); ANION GAP 6 (6-14); AST (SGOT) 45 U/L (15-37); BLOOD UREA NITROGEN 30 mg/dL (8-26); BUN/CREATININE RATIO 27 (6-20); CALCIUM 7.4 mg/dL (8.5-10.1); CARBON DIOXIDE 28 mmol/L (21-32); CHLORIDE 113 mmol/L (98-107); CREATININE 1.1 mg/dL (0.7-1.3); GFR 65.1; GLUCOSE 117 mg/dL (70-99); MAGNESIUM 2.1 mg/dL (1.8-2.4); PHOSPHORUS 4.2 mg/dL (2.6-4.7); POTASSIUM 4.5 mmol/L (3.5-5.1); SODIUM 147 mmol/L (136-145); TOTAL BILIRUBIN 0.4 mg/dL (0.2-1.0); TOTAL PROTEIN 4.7 g/dL (6.4-8.2)
[2017-08-17] MEDS: POLYETHYLENE GLYCOL 3350 17 GM PACKET. PO (08:17)
[2017-08-17] MEDS: LACTOBACILLUS RHAMNOSUS GG 1 CAPSULE. PO ×2 (08:17→19:44)
[2017-08-17] MEDS: DOCUSATE SODIUM 100 MG CAPSULE. PO ×2 (08:17→19:44)
[2017-08-17] MEDS: PANTOPRAZOLE SODIUM IV DRIP 80 MG in IV NORMAL SALINE 100ML 100 ML IV (08:17)
[2017-08-17] MEDS: BUDESONIDE 0.5 MG/2 ML NEBU. NEB ×2 (08:31→19:28)
[2017-08-17 08:33] LABS: HEMATOCRIT 25.5 % (39.0-53.0); HEMOGLOBIN 8.4 g/dL (13.0-17.5); MEAN CORPUSCULAR HEMOGLOBIN 31 pg (25-35); MEAN CORPUSCULAR HGB CONC 33 g/dL (31-37); MEAN CORPUSCULAR VOLUME 93 fL (79-100); PLATELET COUNT 258 x10^3/uL (140-400); RED BLOOD COUNT 2.74 x10^6/uL (4.30-5.70); WHITE BLOOD COUNT 25.7 x10^3/uL (4.0-11.0)
[2017-08-17] MEDS: ELECTROLYTE (ICU) PROTOCOL. MC (09:00)
[2017-08-17 12:52] LABS: HEMOGLOBIN 8.1 g/dL (13.0-17.5)
[2017-08-17] MEDS: PANTOPRAZOLE IV PUSH 40 MG VIAL. IVP (17:32)
[2017-08-17 17:51] LABS: HEMOGLOBIN 7.8 g/dL (13.0-17.5)
[2017-08-18] MEDS: PIPERACILLIN/TAZOBACTAM 3.375 GM in IV NORMAL SALINE 50ML 50 ML IV ×4 (00:55→17:41)
[2017-08-18] MEDS: AMINO AC 3%/ELECTROLYTE/GLYCER 1,000 ML IV ×2 (04:57→17:41)
[2017-08-18 06:43] LABS: HEMATOCRIT 24.5 % (39.0-53.0); HEMOGLOBIN 7.9 g/dL (13.0-17.5); MEAN CORPUSCULAR HEMOGLOBIN 30 pg (25-35); MEAN CORPUSCULAR HGB CONC 32 g/dL (31-37); MEAN CORPUSCULAR VOLUME 94 fL (79-100); PLATELET COUNT 257 x10^3/uL (140-400); RED BLOOD COUNT 2.62 x10^6/uL (4.30-5.70); RED CELL DISTRIBUTION WIDTH 14.9 % (11.5-14.5); WHITE BLOOD COUNT 18.5 x10^3/uL (4.0-11.0)
[2017-08-18 06:59] LABS: ALBUMIN 1.6 g/dL (3.4-5.0); ALBUMIN/GLOBULIN RATIO 0.6 (1.0-1.7); ALK PHOS 70 U/L (46-116); ALT (SGPT) 36 U/L (16-63); ANION GAP 5 (6-14); AST (SGOT) 39 U/L (15-37); BLOOD UREA NITROGEN 28 mg/dL (8-26); BUN/CREATININE RATIO 31 (6-20); CARBON DIOXIDE 29 mmol/L (21-32); CHLORIDE 116 mmol/L (98-107); CREATININE 0.9 mg/dL (0.7-1.3); GLUCOSE 78 mg/dL (70-99); MAGNESIUM 2.1 mg/dL (1.8-2.4); PHOSPHORUS 3.2 mg/dL (2.6-4.7); POTASSIUM 4.2 mmol/L (3.5-5.1); SODIUM 150 mmol/L (136-145); TOTAL BILIRUBIN 0.3 mg/dL (0.2-1.0); TOTAL PROTEIN 4.3 g/dL (6.4-8.2)
[2017-08-18] MEDS: POLYETHYLENE GLYCOL 3350 17 GM PACKET. PO (07:42)
[2017-08-18] MEDS: ELECTROLYTE (ICU) PROTOCOL. MC (07:42)
[2017-08-18] MEDS: LACTOBACILLUS RHAMNOSUS GG 1 CAPSULE. PO ×2 (07:42→19:48)
[2017-08-18] MEDS: DOCUSATE SODIUM 100 MG CAPSULE. PO ×2 (07:42→19:48)
[2017-08-18] MEDS: IPRATRPIUM/ALBUTEROL 0.5/2.5MG 3 ML NEBU. NEB ×4 (07:44→19:44)
[2017-08-18] MEDS: BUDESONIDE 0.5 MG/2 ML NEBU. NEB ×2 (07:44→19:44)
[2017-08-18] MEDS: PANTOPRAZOLE IV PUSH 40 MG VIAL. IVP ×2 (08:32→17:41)
[2017-08-18] MEDS: methylPREDNISolone SOD SUCC PF 40 MG/ML VIAL. IV (08:32)
[2017-08-18 11:59] LABS: POC GLUCOSE 87 mg/dL (70-99)
[2017-08-18] MEDS: DESMOPRESSIN 4 MCG/ML AMPUL. SQ ×2 (12:22→20:41)
[2017-08-18] MEDS: ALBUMIN HUMAN 25% 100 ML IV ×2 (14:17→20:40)
[2017-08-18] MEDS: FUROSEMIDE 40 MG/4 ML VIAL. IVP ×2 (17:41→20:40)
[2017-08-18 18:14] LABS: HEMOGLOBIN 7.9 g/dL (13.0-17.5)
[2017-08-19] MEDS: PIPERACILLIN/TAZOBACTAM 3.375 GM in IV NORMAL SALINE 50ML 50 ML IV ×4 (00:49→19:04)
[2017-08-19] MEDS: AMINO AC 3%/ELECTROLYTE/GLYCER 1,000 ML IV ×2 (05:40→21:27)
[2017-08-19 05:50] LABS: ADD MAN DIFF? NO
[2017-08-19 05:55] LABS: BASO % 0 % (0-3); EOS # 0.1 x10^3/uL (0.0-0.7); EOS % 1 % (0-3); HEMATOCRIT 21.3 % (39.0-53.0); LYMPH # 1.2 x10^3/uL (1.0-4.8); LYMPH % 10 % (24-48); MEAN CORPUSCULAR HEMOGLOBIN 31 pg (25-35); MEAN CORPUSCULAR HGB CONC 33 g/dL (31-37); MEAN CORPUSCULAR VOLUME 94 fL (79-100); MONO # 1.3 x10^3/uL (0.0-1.1); MONO % 10 % (0-9); NEUT # 9.8 x10^3uL (1.8-7.7); NEUT % 79 % (31-73); PLATELET COUNT 225 x10^3/uL (140-400); RED BLOOD COUNT 2.26 x10^6/uL (4.30-5.70); RED CELL DISTRIBUTION WIDTH 14.7 % (11.5-14.5); WHITE BLOOD COUNT 12.4 x10^3/uL (4.0-11.0)
[2017-08-19 06:15] LABS: ALBUMIN 2.3 g/dL (3.4-5.0); ANION GAP 2 (6-14); BLOOD UREA NITROGEN 26 mg/dL (8-26); CALCIUM 7.9 mg/dL (8.5-10.1); CARBON DIOXIDE 35 mmol/L (21-32); CHLORIDE 109 mmol/L (98-107); CREATININE 0.8 mg/dL (0.7-1.3); GLUCOSE 99 mg/dL (70-99); MAGNESIUM 2.1 mg/dL (1.8-2.4); PHOSPHORUS 3.3 mg/dL (2.6-4.7); POTASSIUM 3.6 mmol/L (3.5-5.1); SODIUM 146 mmol/L (136-145)
[2017-08-19] MEDS: IPRATRPIUM/ALBUTEROL 0.5/2.5MG 3 ML NEBU. NEB ×4 (08:00→19:56)
[2017-08-19] MEDS: BUDESONIDE 0.5 MG/2 ML NEBU. NEB ×3 (08:00→19:56)
[2017-08-19] MEDS ORDERED: IOHEXOL 300 MG/ML 100ML VIAL. (08:04)
[2017-08-19] MEDS ORDERED: LIDOCAINE WITH 8.4% SOD BICARB 3 ML DISP.SYRIN. (08:04)
[2017-08-19] MEDS: LACTOBACILLUS RHAMNOSUS GG 1 CAPSULE. PO ×2 (09:00→21:00)
[2017-08-19] MEDS: ELECTROLYTE (ICU) PROTOCOL. MC (09:00)
[2017-08-19] MEDS: ALBUMIN HUMAN 25% 100 ML IV ×3 (09:00→21:27)
[2017-08-19] MEDS: POLYETHYLENE GLYCOL 3350 17 GM PACKET. PO (09:00)
[2017-08-19] MEDS: DOCUSATE SODIUM 100 MG CAPSULE. PO ×2 (09:00→21:00)
[2017-08-19] MEDS ORDERED: fentaNYL PF VIAL 100 MCG/2 ML VIAL (09:14)
[2017-08-19] MEDS ORDERED: MIDAZOLAM HCL/PF 2 MG/2 ML VIAL. (09:14)
[2017-08-19 09:15] LABS: IMMEDIATE SPIN CROSSMATCH 1 2
[2017-08-19] MEDS ORDERED: CONTRAST GIVEN MC (09:45)
[2017-08-19] MEDS: IOHEXOL 300 MG/ML 100ML VIAL. IART (10:26)
[2017-08-19] MEDS: LIDOCAINE WITH 8.4% SOD BICARB 3 ML DISP.SYRIN. IJ (10:26)
[2017-08-19] MEDS: PANTOPRAZOLE IV PUSH 40 MG VIAL. IVP ×2 (11:16→19:04)
[2017-08-19] MEDS: DESMOPRESSIN 4 MCG/ML AMPUL. SQ ×2 (11:18→21:28)
[2017-08-19 19:14] LABS: HEMATOCRIT 24.5 % (39.0-53.0)
[2017-08-19 19:14] LABS: HEMOGLOBIN 8.3 g/dL (13.0-17.5)
[2017-08-20] MEDS: PIPERACILLIN/TAZOBACTAM 3.375 GM in IV NORMAL SALINE 50ML 50 ML IV ×5 (00:52→17:03)
[2017-08-20 06:08] LABS: HEMATOCRIT 25.4 % (39.0-53.0); HEMOGLOBIN 8.3 g/dL (13.0-17.5); MEAN CORPUSCULAR HEMOGLOBIN 31 pg (25-35); MEAN CORPUSCULAR HGB CONC 33 g/dL (31-37); MEAN CORPUSCULAR VOLUME 95 fL (79-100); PLATELET COUNT 199 x10^3/uL (140-400); RED BLOOD COUNT 2.68 x10^6/uL (4.30-5.70); RED CELL DISTRIBUTION WIDTH 14.7 % (11.5-14.5); WHITE BLOOD COUNT 13.3 x10^3/uL (4.0-11.0)
[2017-08-20 06:11] LABS: ALBUMIN 2.8 g/dL (3.4-5.0); ALBUMIN/GLOBULIN RATIO 1.2 (1.0-1.7); ALK PHOS 65 U/L (46-116); ALT (SGPT) 33 U/L (16-63); ANION GAP 2 (6-14); AST (SGOT) 33 U/L (15-37); BLOOD UREA NITROGEN 22 mg/dL (8-26); BUN/CREATININE RATIO 37 (6-20); CALCIUM 8.2 mg/dL (8.5-10.1); CARBON DIOXIDE 36 mmol/L (21-32); CHLORIDE 108 mmol/L (98-107); CREATININE 0.6 mg/dL (0.7-1.3); GLUCOSE 93 mg/dL (70-99); MAGNESIUM 2.1 mg/dL (1.8-2.4); PHOSPHORUS 3.1 mg/dL (2.6-4.7); POTASSIUM 3.6 mmol/L (3.5-5.1); SODIUM 146 mmol/L (136-145); TOTAL BILIRUBIN 0.5 mg/dL (0.2-1.0); TOTAL PROTEIN 5.2 g/dL (6.4-8.2)
[2017-08-20] MEDS: AMINO AC 3%/ELECTROLYTE/GLYCER 1,000 ML IV (07:15)
[2017-08-20] MEDS: LACTOBACILLUS RHAMNOSUS GG 1 CAPSULE. PO ×2 (07:53→20:59)
[2017-08-20] MEDS: POLYETHYLENE GLYCOL 3350 17 GM PACKET. PO (07:53)
[2017-08-20] MEDS: DOCUSATE SODIUM 100 MG CAPSULE. PO ×2 (07:53→20:59)
[2017-08-20] MEDS: IPRATRPIUM/ALBUTEROL 0.5/2.5MG 3 ML NEBU. NEB ×4 (08:02→19:46)
[2017-08-20] MEDS: BUDESONIDE 0.5 MG/2 ML NEBU. NEB ×2 (08:02→19:46)
[2017-08-20] MEDS: PANTOPRAZOLE IV PUSH 40 MG VIAL. IVP ×2 (08:15→17:02)
[2017-08-20] MEDS: ELECTROLYTE (ICU) PROTOCOL. MC (08:17)
[2017-08-20] MEDS: ALBUMIN HUMAN 25% 100 ML IV (08:17)
[2017-08-20] MEDS ORDERED: AMOXICILLIN/K CLAV 875/125MG TABLET. PO (09:00)
[2017-08-20] MEDS: DESMOPRESSIN 4 MCG/ML AMPUL. SQ ×2 (12:12→21:14)
[2017-08-20] MEDS: TPN PER PHARMACY MC (12:45)
[2017-08-20] MEDS: HALOPERIDOL LACTATE 5 MG/ML VIAL. IVP ×2 (17:02→22:00)
[2017-08-20 17:45] LABS: HEMOGLOBIN 8.4 g/dL (13.0-17.5)
[2017-08-20 17:45] LABS: HEMATOCRIT 25.2 % (39.0-53.0)
[2017-08-20] MEDS ORDERED: DESMOPRESSIN 4 MCG/ML AMPUL. SQ (21:00)
[2017-08-20] MEDS: AMINO ACIDS IV (22:00)
[2017-08-20] MEDS: [UNRECOGNIZED DRUG - OTHER] IV (22:00)
[2017-08-20] MEDS: TOTAL PARENTERAL NUTRITION IV (22:00)
[2017-08-20] MEDS: DEXTROSE 70% IV (22:00)
[2017-08-21 05:29] LABS: MAGNESIUM 2.3 mg/dL (1.8-2.4)
[2017-08-21 05:31] LABS: ALBUMIN 2.8 g/dL (3.4-5.0); BLOOD UREA NITROGEN 24 mg/dL (8-26); CALCIUM 8.4 mg/dL (8.5-10.1); CARBON DIOXIDE 37 mmol/L (21-32); CHLORIDE 109 mmol/L (98-107); CREATININE 0.8 mg/dL (0.7-1.3); GLUCOSE 158 mg/dL (70-99); PHOSPHORUS 3.2 mg/dL (2.6-4.7); POTASSIUM 3.7 mmol/L (3.5-5.1); SODIUM 145 mmol/L (136-145)
[2017-08-21] MEDS: HALOPERIDOL LACTATE 5 MG/ML VIAL. IVP ×3 (05:49→21:54)
[2017-08-21] MEDS: PIPERACILLIN/TAZOBACTAM 3.375 GM in IV NORMAL SALINE 50ML 50 ML IV ×4 (05:50→18:00)
[2017-08-21] MEDS: BUDESONIDE 0.5 MG/2 ML NEBU. NEB ×2 (07:08→20:44)
[2017-08-21] MEDS: IPRATRPIUM/ALBUTEROL 0.5/2.5MG 3 ML NEBU. NEB ×4 (07:08→20:40)
[2017-08-21 07:47] LABS: POC GLUCOSE 162 mg/dL (70-99)
[2017-08-21 08:19] LABS: BASE EXCESS COOX 3 mmol/L (-3-3); CARBON MONOXIDE 0.3 % (0.0-1.9); HCO3 COOX 32 mmol/L (21-28); METHEMOGLOBIN 0.7 % (0.0-1.9); OXYHEMOGLOBIN 90.9 %; PH COOX 7.21 (7.35-7.45); PO2 COOX 70 mmHg (65-108); SAT O2 COOX 92 % (92-99); TOTAL HEMOGLOBIN 9.7 g/dL
[2017-08-21 08:22] LABS: FIO2 COOX 40
[2017-08-21 08:23] LABS: ADD MAN DIFF? NO
[2017-08-21 08:43] LABS: BASO % 0 % (0-3); EOS # 0.2 x10^3/uL (0.0-0.7); EOS % 1 % (0-3); HEMATOCRIT 26.7 % (39.0-53.0); HEMOGLOBIN 8.7 g/dL (13.0-17.5); LYMPH # 0.8 x10^3/uL (1.0-4.8); LYMPH % 5 % (24-48); MEAN CORPUSCULAR HEMOGLOBIN 32 pg (25-35); MEAN CORPUSCULAR HGB CONC 33 g/dL (31-37); MEAN CORPUSCULAR VOLUME 97 fL (79-100); MONO % 6 % (0-9); NEUT # 13.7 x10^3uL (1.8-7.7); NEUT % 87 % (31-73); PLATELET COUNT 173 x10^3/uL (140-400); RED BLOOD COUNT 2.75 x10^6/uL (4.30-5.70); RED CELL DISTRIBUTION WIDTH 15.5 % (11.5-14.5); WHITE BLOOD COUNT 15.7 x10^3/uL (4.0-11.0)
[2017-08-21] MEDS: DESMOPRESSIN 4 MCG/ML AMPUL. SQ (09:00)
[2017-08-21] MEDS: POLYETHYLENE GLYCOL 3350 17 GM PACKET. PO (09:00)
[2017-08-21] MEDS: LACTOBACILLUS RHAMNOSUS GG 1 CAPSULE. PO (09:00)
[2017-08-21] MEDS: DOCUSATE SODIUM 100 MG CAPSULE. PO ×2 (09:00→20:31)
[2017-08-21 10:36] LABS: BASE EXCESS ABG 8 mmol/L (-3-3); HCO3 ABG 35 mmol/L (21-28); PH ABG 7.33 (7.35-7.45); PO2 ABG 60 mmHg (65-108); SAT O2 ABG 90 % (92-99)
[2017-08-21 10:39] LABS: PCO2 ABG 69 mmHg (35-46)
[2017-08-21 10:40] LABS: FIO2 ABG 40
[2017-08-21] MEDS: PANTOPRAZOLE IV PUSH 40 MG VIAL. IVP ×2 (12:29→16:30)
[2017-08-21] MEDS: hydrALAZINE 20 MG/ML VIAL. IVP ×2 (14:41→22:05)
[2017-08-21] MEDS: NYSTATIN TOPICAL POWDER 15GM BOTTLE. TP ×2 (16:00→20:40)
[2017-08-21 20:53] LABS: HEMATOCRIT 23.7 % (39.0-53.0)
[2017-08-21 20:53] LABS: HEMOGLOBIN 7.7 g/dL (13.0-17.5)
[2017-08-21] MEDS: [UNRECOGNIZED DRUG - OTHER] IV (21:59)
[2017-08-21] MEDS: TOTAL PARENTERAL NUTRITION IV (21:59)
[2017-08-21] MEDS: DEXTROSE 70% IV (21:59)
[2017-08-21] MEDS: AMINO ACIDS IV (21:59)
[2017-08-21] MEDS: fentaNYL PF VIAL 100 MCG/2 ML VIAL IV (23:30)
[2017-08-22] MEDS: hydrALAZINE 20 MG/ML VIAL. IVP (05:30)
[2017-08-22] MEDS: HALOPERIDOL LACTATE 5 MG/ML VIAL. IVP ×5 (05:36→21:15)
[2017-08-22] MEDS: PIPERACILLIN/TAZOBACTAM 3.375 GM in IV NORMAL SALINE 50ML 50 ML IV ×4 (05:38→17:40)
[2017-08-22] MEDS: fentaNYL PF VIAL 100 MCG/2 ML VIAL IV ×3 (06:09→20:25)
[2017-08-22 06:16] LABS: HEMATOCRIT 25.4 % (39.0-53.0); HEMOGLOBIN 8.5 g/dL (13.0-17.5); MEAN CORPUSCULAR HEMOGLOBIN 32 pg (25-35); MEAN CORPUSCULAR HGB CONC 33 g/dL (31-37); MEAN CORPUSCULAR VOLUME 96 fL (79-100); PLATELET COUNT 172 x10^3/uL (140-400); RED BLOOD COUNT 2.65 x10^6/uL (4.30-5.70); RED CELL DISTRIBUTION WIDTH 15.3 % (11.5-14.5); WHITE BLOOD COUNT 12.3 x10^3/uL (4.0-11.0)
[2017-08-22 06:26] LABS: ALBUMIN 2.5 g/dL (3.4-5.0); ALBUMIN/GLOBULIN RATIO 0.8 (1.0-1.7); ALK PHOS 94 U/L (46-116); ALT (SGPT) 27 U/L (16-63); ANION GAP 5 (6-14); AST (SGOT) 24 U/L (15-37); BLOOD UREA NITROGEN 24 mg/dL (8-26); BUN/CREATININE RATIO 30 (6-20); CALCIUM 9.1 mg/dL (8.5-10.1); CARBON DIOXIDE 33 mmol/L (21-32); CHLORIDE 111 mmol/L (98-107); CREATININE 0.8 mg/dL (0.7-1.3); GLUCOSE 139 mg/dL (70-99); MAGNESIUM 2.2 mg/dL (1.8-2.4); PHOSPHORUS 2.5 mg/dL (2.6-4.7); POTASSIUM 3.4 mmol/L (3.5-5.1); SODIUM 149 mmol/L (136-145); TOTAL BILIRUBIN 0.6 mg/dL (0.2-1.0); TOTAL PROTEIN 5.5 g/dL (6.4-8.2)
[2017-08-22] MEDS: BUDESONIDE 0.5 MG/2 ML NEBU. NEB ×2 (07:55→19:47)
[2017-08-22] MEDS: IPRATRPIUM/ALBUTEROL 0.5/2.5MG 3 ML NEBU. NEB ×4 (07:55→19:46)
[2017-08-22] MEDS: POLYETHYLENE GLYCOL 3350 17 GM PACKET. PO (08:12)
[2017-08-22] MEDS: DOCUSATE SODIUM 100 MG CAPSULE. PO ×2 (08:12→19:56)
[2017-08-22] MEDS: NYSTATIN TOPICAL POWDER 15GM BOTTLE. TP ×2 (08:13→19:56)
[2017-08-22] MEDS: PANTOPRAZOLE IV PUSH 40 MG VIAL. IVP ×2 (08:13→17:39)
[2017-08-22] MEDS: TPN PER PHARMACY MC (11:34)
[2017-08-22] MEDS: DEXTROSE 70% IV (21:15)
[2017-08-22] MEDS: [UNRECOGNIZED DRUG - OTHER] IV (21:15)
[2017-08-22] MEDS: AMINO ACIDS IV (21:15)
[2017-08-22] MEDS: TOTAL PARENTERAL NUTRITION IV (21:15)
[2017-08-23] MEDS: PIPERACILLIN/TAZOBACTAM 3.375 GM in IV NORMAL SALINE 50ML 50 ML IV ×4 (00:02→16:42)
[2017-08-23] MEDS: hydrALAZINE 20 MG/ML VIAL. IVP (01:00)
[2017-08-23] MEDS: fentaNYL PF VIAL 100 MCG/2 ML VIAL IV ×2 (01:00→07:54)
[2017-08-23] MEDS: HALOPERIDOL LACTATE 5 MG/ML VIAL. IVP ×3 (06:06→21:26)
[2017-08-23 06:21] LABS: HEMATOCRIT 24.4 % (39.0-53.0); HEMOGLOBIN 8.1 g/dL (13.0-17.5); MEAN CORPUSCULAR HEMOGLOBIN 32 pg (25-35); MEAN CORPUSCULAR HGB CONC 33 g/dL (31-37); MEAN CORPUSCULAR VOLUME 96 fL (79-100); PLATELET COUNT 146 x10^3/uL (140-400); RED BLOOD COUNT 2.55 x10^6/uL (4.30-5.70); RED CELL DISTRIBUTION WIDTH 15.8 % (11.5-14.5); WHITE BLOOD COUNT 9.3 x10^3/uL (4.0-11.0)
[2017-08-23 06:47] LABS: ALBUMIN 2.2 g/dL (3.4-5.0); ALBUMIN/GLOBULIN RATIO 0.7 (1.0-1.7); ALK PHOS 95 U/L (46-116); ALT (SGPT) 22 U/L (16-63); ANION GAP 7 (6-14); AST (SGOT) 19 U/L (15-37); BLOOD UREA NITROGEN 22 mg/dL (8-26); BUN/CREATININE RATIO 31 (6-20); CALCIUM 9.1 mg/dL (8.5-10.1); CARBON DIOXIDE 31 mmol/L (21-32); CHLORIDE 110 mmol/L (98-107); CREATININE 0.7 mg/dL (0.7-1.3); GFR 109.6; GLUCOSE 172 mg/dL (70-99); POTASSIUM 3.7 mmol/L (3.5-5.1); SODIUM 148 mmol/L (136-145); TOTAL BILIRUBIN 0.5 mg/dL (0.2-1.0); TOTAL PROTEIN 5.3 g/dL (6.4-8.2)
[2017-08-23] MEDS: PANTOPRAZOLE IV PUSH 40 MG VIAL. IVP ×2 (07:52→16:45)
[2017-08-23] MEDS ORDERED: MAGNESIUM SULFATE 2GM 50 ML IV (08:45)
[2017-08-23] MEDS ORDERED: POTASSIUM CHLORIDE 20MEQ 50 ML IV (08:45)
[2017-08-23] MEDS: FUROSEMIDE 40 MG/4 ML VIAL. IVP ×2 (08:53→16:41)
[2017-08-23 09:00] LABS: MAGNESIUM 2.2 mg/dL (1.8-2.4)
[2017-08-23] MEDS: NYSTATIN TOPICAL POWDER 15GM BOTTLE. TP ×2 (09:00→21:28)
[2017-08-23] MEDS: POLYETHYLENE GLYCOL 3350 17 GM PACKET. PO (09:00)
[2017-08-23] MEDS: DOCUSATE SODIUM 100 MG CAPSULE. PO ×2 (09:00→21:00)
[2017-08-23] MEDS: IPRATRPIUM/ALBUTEROL 0.5/2.5MG 3 ML NEBU. NEB ×4 (09:29→19:51)
[2017-08-23] MEDS: BUDESONIDE 0.5 MG/2 ML NEBU. NEB ×2 (09:29→19:51)
[2017-08-23 10:00] LABS: PCO2 COOX 83 mmHg (35-46)
[2017-08-23] MEDS: TPN PER PHARMACY MC (14:39)
[2017-08-23 17:46] LABS: POTASSIUM 3.4 mmol/L (3.5-5.1)
[2017-08-23] MEDS: POTASSIUM CHLORIDE 20MEQ 50 ML IV ×2 (19:46→21:28)
[2017-08-23] MEDS: AMINO ACIDS IV (21:28)
[2017-08-23] MEDS: [UNRECOGNIZED DRUG - OTHER] IV (21:28)
[2017-08-23] MEDS: DEXTROSE 70% IV (21:28)
[2017-08-23] MEDS: TOTAL PARENTERAL NUTRITION IV (21:28)
[2017-08-24] MEDS: PIPERACILLIN/TAZOBACTAM 3.375 GM in IV NORMAL SALINE 50ML 50 ML IV ×4 (00:12→17:37)
[2017-08-24 00:52] LABS: POTASSIUM 3.7 mmol/L (3.5-5.1)
[2017-08-24] MEDS: PANTOPRAZOLE IV PUSH 40 MG VIAL. IVP ×2 (06:16→17:37)
[2017-08-24 06:28] LABS: HEMOGLOBIN 7.3 g/dL (13.0-17.5)
[2017-08-24 06:28] LABS: HEMATOCRIT 22.1 % (39.0-53.0)
[2017-08-24] MEDS: HALOPERIDOL LACTATE 5 MG/ML VIAL. IVP ×2 (06:34→06:48)
[2017-08-24 06:50] LABS: ANION GAP 3 (6-14); BLOOD UREA NITROGEN 20 mg/dL (8-26); CARBON DIOXIDE 37 mmol/L (21-32); CHLORIDE 103 mmol/L (98-107); CREATININE 0.8 mg/dL (0.7-1.3); GLUCOSE 163 mg/dL (70-99); MAGNESIUM 1.8 mg/dL (1.8-2.4); PHOSPHORUS 3.5 mg/dL (2.6-4.7); POTASSIUM 3.7 mmol/L (3.5-5.1); SODIUM 143 mmol/L (136-145)
[2017-08-24] MEDS: IPRATRPIUM/ALBUTEROL 0.5/2.5MG 3 ML NEBU. NEB ×4 (07:37→20:27)
[2017-08-24] MEDS: BUDESONIDE 0.5 MG/2 ML NEBU. NEB ×2 (07:37→20:27)
[2017-08-24] MEDS: POLYETHYLENE GLYCOL 3350 17 GM PACKET. PO (09:00)
[2017-08-24] MEDS: DOCUSATE SODIUM 100 MG CAPSULE. PO ×2 (09:00→21:00)
[2017-08-24] MEDS: FUROSEMIDE 40 MG/4 ML VIAL. IVP ×2 (09:49→14:31)
[2017-08-24] MEDS: NYSTATIN TOPICAL POWDER 15GM BOTTLE. TP ×2 (09:57→22:00)
[2017-08-24] MEDS: TPN PER PHARMACY MC (12:52)
[2017-08-24 13:08] LABS: POTASSIUM 3.6 mmol/L (3.5-5.1)
[2017-08-24] MEDS ORDERED: HALOPERIDOL LACTATE 5 MG/ML VIAL. IVP (14:30)
[2017-08-24] MEDS: [UNRECOGNIZED DRUG - OTHER] IV (21:59)
[2017-08-24] MEDS: DEXTROSE 70% IV (21:59)
[2017-08-24] MEDS: AMINO ACIDS IV (21:59)
[2017-08-24] MEDS: TOTAL PARENTERAL NUTRITION IV (21:59)
[2017-08-25] MEDS: PIPERACILLIN/TAZOBACTAM 3.375 GM in IV NORMAL SALINE 50ML 50 ML IV ×4 (00:11→18:00)
[2017-08-25] MEDS: ALBUTEROL SULFATE 2.5 MG/3 ML NEBU. NEB (05:16)
[2017-08-25] MEDS: PANTOPRAZOLE IV PUSH 40 MG VIAL. IVP ×2 (05:40→16:30)
[2017-08-25 06:20] LABS: HEMATOCRIT 22.4 % (39.0-53.0); HEMOGLOBIN 7.5 g/dL (13.0-17.5); MEAN CORPUSCULAR HEMOGLOBIN 32 pg (25-35); MEAN CORPUSCULAR HGB CONC 34 g/dL (31-37); MEAN CORPUSCULAR VOLUME 95 fL (79-100); PLATELET COUNT 136 x10^3/uL (140-400); RED BLOOD COUNT 2.37 x10^6/uL (4.30-5.70); RED CELL DISTRIBUTION WIDTH 15.8 % (11.5-14.5); WHITE BLOOD COUNT 5.5 x10^3/uL (4.0-11.0)
[2017-08-25 06:32] LABS: ANION GAP 5 (6-14); BLOOD UREA NITROGEN 22 mg/dL (8-26); CALCIUM 8.3 mg/dL (8.5-10.1); CARBON DIOXIDE 36 mmol/L (21-32); CHLORIDE 100 mmol/L (98-107); CREATININE 0.8 mg/dL (0.7-1.3); GLUCOSE 106 mg/dL (70-99); MAGNESIUM 1.7 mg/dL (1.8-2.4); POTASSIUM 3.7 mmol/L (3.5-5.1); SODIUM 141 mmol/L (136-145)
[2017-08-25] MEDS: IPRATRPIUM/ALBUTEROL 0.5/2.5MG 3 ML NEBU. NEB ×4 (08:03→19:50)
[2017-08-25] MEDS: BUDESONIDE 0.5 MG/2 ML NEBU. NEB ×2 (08:03→19:50)
[2017-08-25] MEDS: POLYETHYLENE GLYCOL 3350 17 GM PACKET. PO ×2 (08:53→09:00)
[2017-08-25] MEDS: FUROSEMIDE 40 MG/4 ML VIAL. IVP ×2 (08:53→13:27)
[2017-08-25] MEDS: DOCUSATE SODIUM 100 MG CAPSULE. PO ×3 (08:53→21:00)
[2017-08-25] MEDS: NYSTATIN TOPICAL POWDER 15GM BOTTLE. TP ×2 (08:54→21:40)
[2017-08-25] MEDS: TPN PER PHARMACY MC (13:25)
[2017-08-25] MEDS: DEXTROSE 70% IV (21:37)
[2017-08-25] MEDS: AMINO ACIDS IV (21:37)
[2017-08-25] MEDS: TOTAL PARENTERAL NUTRITION IV (21:37)
[2017-08-25] MEDS: [UNRECOGNIZED DRUG - OTHER] IV (21:37)
[2017-08-26] MEDS: PIPERACILLIN/TAZOBACTAM 3.375 GM in IV NORMAL SALINE 50ML 50 ML IV ×2 (00:02→05:34)
[2017-08-26] MEDS: PANTOPRAZOLE IV PUSH 40 MG VIAL. IVP ×2 (05:34→16:20)
[2017-08-26 06:24] LABS: HEMATOCRIT 21.8 % (39.0-53.0); HEMOGLOBIN 7.3 g/dL (13.0-17.5); MEAN CORPUSCULAR HEMOGLOBIN 31 pg (25-35); MEAN CORPUSCULAR HGB CONC 33 g/dL (31-37); MEAN CORPUSCULAR VOLUME 94 fL (79-100); PLATELET COUNT 152 x10^3/uL (140-400); RED BLOOD COUNT 2.32 x10^6/uL (4.30-5.70); RED CELL DISTRIBUTION WIDTH 15.1 % (11.5-14.5); WHITE BLOOD COUNT 5.6 x10^3/uL (4.0-11.0)
[2017-08-26 06:53] LABS: ALBUMIN 2.1 g/dL (3.4-5.0); ALBUMIN/GLOBULIN RATIO 0.6 (1.0-1.7); ALK PHOS 164 U/L (46-116); ALT (SGPT) 31 U/L (16-63); ANION GAP 6 (6-14); AST (SGOT) 43 U/L (15-37); BLOOD UREA NITROGEN 20 mg/dL (8-26); BUN/CREATININE RATIO 22 (6-20); CALCIUM 8.5 mg/dL (8.5-10.1); CARBON DIOXIDE 36 mmol/L (21-32); CHLORIDE 98 mmol/L (98-107); CREATININE 0.9 mg/dL (0.7-1.3); GLUCOSE 99 mg/dL (70-99); POTASSIUM 3.5 mmol/L (3.5-5.1); SODIUM 140 mmol/L (136-145); TOTAL BILIRUBIN 0.5 mg/dL (0.2-1.0); TOTAL PROTEIN 5.7 g/dL (6.4-8.2)
[2017-08-26] MEDS: IPRATRPIUM/ALBUTEROL 0.5/2.5MG 3 ML NEBU. NEB ×4 (07:04→19:49)
[2017-08-26] MEDS: BUDESONIDE 0.5 MG/2 ML NEBU. NEB ×2 (07:05→19:49)
[2017-08-26] MEDS: DOCUSATE SODIUM 100 MG CAPSULE. PO ×3 (08:04→22:00)
[2017-08-26] MEDS: POLYETHYLENE GLYCOL 3350 17 GM PACKET. PO (08:04)
[2017-08-26] MEDS: FUROSEMIDE 40 MG/4 ML VIAL. IVP ×2 (08:47→16:20)
[2017-08-26] MEDS: NYSTATIN TOPICAL POWDER 15GM BOTTLE. TP ×2 (08:47→21:50)
[2017-08-26] MEDS: BARIUM SULFATE 40% (APPLE) 148 GM PWD. PO (10:45)
[2017-08-26] MEDS: TPN PER PHARMACY MC (13:52)
[2017-08-26] MEDS: TOTAL PARENTERAL NUTRITION IV (21:51)
[2017-08-26] MEDS: [UNRECOGNIZED DRUG - OTHER] IV (21:51)
[2017-08-26] MEDS: AMINO ACIDS IV (21:51)
[2017-08-26] MEDS: DEXTROSE 70% IV (21:51)
[2017-08-27 06:14] LABS: HEMOGLOBIN 7.5 g/dL (13.0-17.5)
[2017-08-27 06:14] LABS: HEMATOCRIT 21.6 % (39.0-53.0)
[2017-08-27 06:30] LABS: ALBUMIN 2.1 g/dL (3.4-5.0)
[2017-08-27 06:33] LABS: ANION GAP 2 (6-14); BLOOD UREA NITROGEN 18 mg/dL (8-26); CALCIUM 7.9 mg/dL (8.5-10.1); CARBON DIOXIDE 38 mmol/L (21-32); CHLORIDE 96 mmol/L (98-107); CREATININE 0.8 mg/dL (0.7-1.3); GLUCOSE 95 mg/dL (70-99); MAGNESIUM 2.2 mg/dL (1.8-2.4); POTASSIUM 3.8 mmol/L (3.5-5.1); SODIUM 136 mmol/L (136-145)
[2017-08-27] MEDS: IPRATRPIUM/ALBUTEROL 0.5/2.5MG 3 ML NEBU. NEB ×3 (07:17→14:51)
[2017-08-27] MEDS: BUDESONIDE 0.5 MG/2 ML NEBU. NEB (07:17)
[2017-08-27] MEDS: NYSTATIN TOPICAL POWDER 15GM BOTTLE. TP (09:00)
[2017-08-27] MEDS: POLYETHYLENE GLYCOL 3350 17 GM PACKET. PO (09:48)
[2017-08-27] MEDS: FUROSEMIDE 40 MG/4 ML VIAL. IVP ×2 (09:48→14:00)
[2017-08-27] MEDS: PANTOPRAZOLE IV PUSH 40 MG VIAL. IVP (09:49)
[2017-08-27] MEDS: DOCUSATE SODIUM 100 MG CAPSULE. PO (09:49)
[2017-08-28] MEDS ORDERED: PANTOPRAZOLE 40 MG TABLET.DR. PO (07:30)
== END 2017-08-27 16:20 | DRG 871 ==
LOC: 2 NORTH 08-07 14:16 → 1 WEST ICU 08-10 12:21 → 5 SOUTH 08-20 23:22 → 1 WEST ICU 08-21 08:55 → 4 NORTH 08-24 02:47 → 1 WEST ICU 18:31
PROC: 5A1945Z Respiratory Ventilation, 24-96 Consecutive Hours (ICD-10-PCS; principal; 2017-08-10 14:30)
PROC: 0BH17EZ Insertion of Endotracheal Airway into Trachea, Via Natural or Artificial Opening (ICD-10-PCS; 2017-08-10 14:30)
PROC: 0W3P8ZZ Control Bleeding in Gastrointestinal Tract, Via Natural or Artificial Opening Endoscopic (ICD-10-PCS; 2017-08-10 14:30)
PROC: 04L23DZ Occlusion of Gastric Artery with Intraluminal Device, Percutaneous Approach (ICD-10-PCS; 2017-08-10 14:30)
PROC: 5A09357 Assistance with Respiratory Ventilation, Less than 24 Consecutive Hours, Continuous Positive Airway Pressure (ICD-10-PCS; 2017-08-10 14:30)
PROC: 5A09357 Assistance with Respiratory Ventilation, Less than 24 Consecutive Hours, Continuous Positive Airway Pressure (ICD-10-PCS; 2017-08-10 14:30)
PROC: 5A09357 Assistance with Respiratory Ventilation, Less than 24 Consecutive Hours, Continuous Positive Airway Pressure (ICD-10-PCS; 2017-08-10 14:30)
PROC: 5A09357 Assistance with Respiratory Ventilation, Less than 24 Consecutive Hours, Continuous Positive Airway Pressure (ICD-10-PCS; 2017-08-10 14:30)
PROC: 5A09357 Assistance with Respiratory Ventilation, Less than 24 Consecutive Hours, Continuous Positive Airway Pressure (ICD-10-PCS; 2017-08-10 14:30)
PROC: 5A09357 Assistance with Respiratory Ventilation, Less than 24 Consecutive Hours, Continuous Positive Airway Pressure (ICD-10-PCS; 2017-08-10 14:30)
PROC: 0DJ08ZZ Inspection of Upper Intestinal Tract, Via Natural or Artificial Opening Endoscopic (ICD-10-PCS; 2017-08-10 14:30)
PROC: B4141ZZ Fluoroscopy of Superior Mesenteric Artery using Low Osmolar Contrast (ICD-10-PCS; 2017-08-10 14:30)
PROC: B4101ZZ Fluoroscopy of Abdominal Aorta using Low Osmolar Contrast (ICD-10-PCS; 2017-08-10 14:30)
PROC: 30233N1 Transfusion of Nonautologous Red Blood Cells into Peripheral Vein, Percutaneous Approach (ICD-10-PCS; 2017-08-10 14:30)
DX: A41.9 Sepsis, unspecified organism (principal); J96.01 Acute respiratory failure with hypoxia; I46.9 Cardiac arrest, cause unspecified; J69.0 Pneumonitis due to inhalation of food and vomit; E43 Unspecified severe protein-calorie malnutrition; G93.40 Encephalopathy, unspecified; N17.0 Acute kidney failure with tubular necrosis; J96.02 Acute respiratory failure with hypercapnia; K25.4 Chronic or unspecified gastric ulcer with hemorrhage; R57.8 Other shock; E87.0 Hyperosmolality and hypernatremia; J44.1 Chronic obstructive pulmonary disease with (acute) exacerbation; D62 Acute posthemorrhagic anemia; E87.1 Hypo-osmolality and hyponatremia; R64 Cachexia; D69.6 Thrombocytopenia, unspecified; I11.0 Hypertensive heart disease with heart failure; I95.9 Hypotension, unspecified; I50.9 Heart failure, unspecified; R00.1 Bradycardia, unspecified; T36.8X5A Adverse effect of other systemic antibiotics, initial encounter; E16.2 Hypoglycemia, unspecified; E78.5 Hyperlipidemia, unspecified; E87.6 Hypokalemia; F10.10 Alcohol abuse, uncomplicated; F17.210 Nicotine dependence, cigarettes, uncomplicated; J98.01 Acute bronchospasm; K21.0 Gastro-esophageal reflux disease with esophagitis; K59.00 Constipation, unspecified; N40.1 Benign prostatic hyperplasia with lower urinary tract symptoms; T44.7X5A Adverse effect of beta-adrenoreceptor antagonists, initial encounter; Z80.9 Family history of malignant neoplasm, unspecified; Z82.0 Family history of epilepsy and other diseases of the nervous system; Z86.73 Personal history of transient ischemic attack (TIA), and cerebral infarction without residual deficits; T50.905S Adverse effect of unspecified drugs, medicaments and biological substances, sequela
CPT/HCPCS: 31720; 36415; 36600; 37244; 71045; 74018; 74176; 74230; 75726; 75774; 76937; 80048; 80053; 80069; 81001; 82040; 82533; 82570; 82805; 82962; 83605; 83735; 84100; 84132; 84134; 84145; 84156; 84443; 85007; 85014; 85018; 85025; 85027; 85610; 85730; 86850; 86900; 86901; 86920; 87040; 87086; 87641; 87804; 87804-59; 92526-GN; 92610-GN; 92611-GN; 93306; 94002; 94003; 94640; 94660; 94760; 97110-GO; 97110-GP; 97116-GP; 97163-GP; 97164; 97164-GP; 97166-GO; 97168-GO; 97530-GO; 97530-GP; 97535-GO; C1713; C1760; C1769; C1887; C1892; C1894; C9113; G0269; J0171; J0360; J0610; J1265; J1630; J1644; J1720; J1940; J2020; J2060; J2250; J2543; J2597; J2704; J2765; J2920; J3010; J3370; J3475; J3480; J7030; J7040; J7613; J7620; J7626; P9016; P9046; Q9967

== ENCOUNTER 2017-08-28 15:56 | Inpatient (IN) | payer OTHER, MEDICARE ==
[2017-08-28] MEDS: 0.9 % SODIUM CHLORIDE 10 ML DISP.SYRIN. IV (16:30)
[2017-08-28 16:33] LABS: ADD MAN DIFF? NO
[2017-08-28 16:35] LABS: BASO # 0.1 x10^3/uL (0.0-0.2); BASO % 1 % (0-3); EOS # 0.2 x10^3/uL (0.0-0.7); EOS % 2 % (0-3); HEMOGLOBIN 8.9 g/dL (13.0-17.5); LYMPH # 1.2 x10^3/uL (1.0-4.8); LYMPH % 11 % (24-48); MEAN CORPUSCULAR HEMOGLOBIN 31 pg (25-35); MEAN CORPUSCULAR HGB CONC 33 g/dL (31-37); MEAN CORPUSCULAR VOLUME 94 fL (79-100); MONO # 1.7 x10^3/uL (0.0-1.1); MONO % 15 % (0-9); NEUT # 8.1 x10^3uL (1.8-7.7); NEUT % 72 % (31-73); PLATELET COUNT 210 x10^3/uL (140-400); RED BLOOD COUNT 2.87 x10^6/uL (4.30-5.70); WHITE BLOOD COUNT 11.3 x10^3/uL (4.0-11.0)
[2017-08-28 16:45] LABS: ANION GAP 8 (6-14); BLOOD UREA NITROGEN 21 mg/dL (8-26); CALCIUM 9.2 mg/dL (8.5-10.1); CARBON DIOXIDE 34 mmol/L (21-32); CHLORIDE 94 mmol/L (98-107); CREATININE 0.7 mg/dL (0.7-1.3); GFR 109.6; GLUCOSE 131 mg/dL (70-99); POTASSIUM 3.9 mmol/L (3.5-5.1); SODIUM 136 mmol/L (136-145)
[2017-08-28 16:50] LABS: ALBUMIN 2.8 g/dL (3.4-5.0); ALK PHOS 249 U/L (46-116); ALT (SGPT) 38 U/L (16-63); AST (SGOT) 33 U/L (15-37); DIRECT BILIRUBIN 0.2 mg/dL (0.0-0.2); LIPASE 121 U/L (73-393); MAGNESIUM 2.5 mg/dL (1.8-2.4); TOTAL BILIRUBIN 0.5 mg/dL (0.2-1.0); TOTAL PROTEIN 6.6 g/dL (6.4-8.2)
[2017-08-28 16:52] LABS: LACTIC ACID 1.1 mmol/L (0.4-2.0)
[2017-08-28 16:56] LABS: TROPONINI 0.063 ng/mL (0.000-0.055)
[2017-08-28 17:02] LABS: THYROID STIM HORMONE (TSH) 3.147 uIU/mL (0.358-3.74)
[2017-08-28 17:05] LABS: NT-PRO BNP 657 pg/mL (0-449)
[2017-08-28 17:05] LABS: CKMB MASS 3.4 ng/mL (0.0-3.6); CREATINE KINASE 67 U/L (39-308)
[2017-08-28] MEDS: IV NORMAL SALINE 1000ML BAG 1,000 ML IV (17:10)
[2017-08-28] MEDS: hydrALAZINE 20 MG/ML VIAL. IVP (17:15)
[2017-08-28] MEDS: methylPREDNISolone SOD SUCC PF 125 MG/2 ML VIAL. IV (17:17)
[2017-08-28] MEDS: AZITHRMYCN 500MG IVPB FOR OMNI 250 ML IV (17:55)
[2017-08-28 17:56] LABS: INFLUENZA A PATIENT NEGATIVE (NEGATIVE); INFLUENZA B PATIENT NEGATIVE (NEGATIVE); OBC FLU VALID
[2017-08-28] MEDS: ALBUTEROL SULFATE 2.5 MG/3 ML NEBU. CONT NEB (17:56)
[2017-08-28] MEDS: IPRATRPIUM/ALBUTEROL 0.5/2.5MG 3 ML NEBU. NEB ×2 (17:56→19:07)
[2017-08-28] MEDS ORDERED: IV NORMAL SALINE 1000ML BAG 1,000 ML IV (17:57)
[2017-08-28] MEDS: VANCOMYCIN 1GM IVPB FOR OMNI 250 ML IV (18:00)
[2017-08-28] MEDS ORDERED: ONDANSETRON PF 4 MG/2 ML VIAL. IV (18:00)
[2017-08-28] MEDS ORDERED: ACETAMINOPHEN 325 MG TABLET. PO (18:00)
[2017-08-28 18:09] LABS: BILIRUBIN,URINE NEGATIVE (NEG); CLARITY,URINE CLEAR; COLOR,URINE YELLOW; GLUCOSE,URINE 100 mg/dL (NEG); NITRITE,URINE NEGATIVE (NEG); PROTEIN,URINE >=300 mg/dL (NEG-TRACE)
[2017-08-28 18:17] LABS: BACTERIA,URINE 0 /HPF (0-FEW); WBC,URINE OCC /HPF (0-4)
[2017-08-28 18:18] LABS: HYALINE CASTS, URINE OCCASIONAL /HPF
[2017-08-29] MEDS: ACETAMINOPHEN 325 MG SUPP.RECT. PR (00:15)
[2017-08-29] MEDS: IV DEXTROSE 10% 1,000 ML IV (03:38)
[2017-08-29 04:25] LABS: BASO % 0 % (0-3); EOS % 0 % (0-3); HEMATOCRIT 22.5 % (39.0-53.0); HEMOGLOBIN 7.5 g/dL (13.0-17.5); LYMPH # 0.5 x10^3/uL (1.0-4.8); LYMPH % 5 % (24-48); MEAN CORPUSCULAR HEMOGLOBIN 31 pg (25-35); MEAN CORPUSCULAR HGB CONC 34 g/dL (31-37); MEAN CORPUSCULAR VOLUME 94 fL (79-100); MONO # 0.3 x10^3/uL (0.0-1.1); MONO % 3 % (0-9); NEUT # 8.1 x10^3uL (1.8-7.7); NEUT % 92 % (31-73); PLATELET COUNT 171 x10^3/uL (140-400); RED CELL DISTRIBUTION WIDTH 15.4 % (11.5-14.5); WHITE BLOOD COUNT 8.9 x10^3/uL (4.0-11.0)
[2017-08-29 04:46] LABS: ADD MAN DIFF? YES
[2017-08-29 05:07] LABS: ANION GAP 6 (6-14); BLOOD UREA NITROGEN 19 mg/dL (8-26); CALCIUM 8.7 mg/dL (8.5-10.1); CARBON DIOXIDE 33 mmol/L (21-32); CHLORIDE 97 mmol/L (98-107); CREATININE 0.8 mg/dL (0.7-1.3); GLUCOSE 163 mg/dL (70-99); POTASSIUM 4.2 mmol/L (3.5-5.1); SODIUM 136 mmol/L (136-145)
[2017-08-29 05:18] LABS: TROPONINI 0.051 ng/mL (0.000-0.055)
[2017-08-29 05:24] LABS: LACTIC ACID 1.2 mmol/L (0.4-2.0)
[2017-08-29 06:01] LABS: % BANDS 2 % (0-9); % LYMPHS 9 % (24-48); % MONOS 5 % (0-10); % SEGS 84 % (35-66)
[2017-08-29 06:02] LABS: PLT ESTIMATE ADEQUATE (ADEQUATE)
[2017-08-29] MEDS: IPRATRPIUM/ALBUTEROL 0.5/2.5MG 3 ML NEBU. NEB ×3 (08:11→15:37)
[2017-08-29 08:59] LABS: PHOSPHORUS 3.8 mg/dL (2.6-4.7)
[2017-08-29 08:59] LABS: MAGNESIUM 2.3 mg/dL (1.8-2.4)
[2017-08-29] MEDS: C.DIFF MED SCREEN BY RX. MC (09:00)
[2017-08-29 09:04] LABS: TROPONINI 0.031 ng/mL (0.000-0.055)
[2017-08-29] MEDS: TPN PER PHARMACY MC (10:32)
[2017-08-29] MEDS ORDERED: hydrALAZINE 20 MG/ML VIAL. IVP (12:15)
[2017-08-29] MEDS: VANCOMYCIN 1.75 GM in IV DEXTROSE 5 %-0.2 % NACL 500 ML IV (13:30)
[2017-08-29] MEDS ORDERED: MEROPENEM 1 GM in IV NORMAL SALINE 100ML 100 ML IV (14:00)
[2017-08-29] MEDS: MEROPENEM IV Push 1 GM VIAL. IVP ×2 (14:00→22:00)
[2017-08-29] MEDS: VANCOMYCIN PER PHARMACY MC (14:06)
[2017-08-29] MEDS: amLODIPine BESYLATE 5 MG TABLET PO (17:42)
[2017-08-29] MEDS ORDERED: ALTEPLASE 2MG VIAL 10 MG in IV NORMAL SALINE 100ML 100 ML IV (21:00)
[2017-08-29] MEDS: ALTEPLASE 2 MG VIAL INT CAT (21:24)
[2017-08-29] MEDS: TOTAL PARENTERAL NUTRITION IV (22:00)
[2017-08-29] MEDS: DEXTROSE 70% IV (22:00)
[2017-08-29] MEDS: [UNRECOGNIZED DRUG - OTHER] IV (22:00)
[2017-08-29] MEDS: AMINO ACIDS IV (22:00)
[2017-08-30] MEDS: VANCOMYCIN 1 GM in IV 1/2 NORMAL SALINE 250 ML IV ×2 (01:30→12:30)
[2017-08-30] MEDS: MEROPENEM IV Push 1 GM VIAL. IVP ×3 (06:00→22:29)
[2017-08-30 06:44] LABS: MEAN CORPUSCULAR HEMOGLOBIN 32 pg (25-35); MEAN CORPUSCULAR HGB CONC 34 g/dL (31-37); MEAN CORPUSCULAR VOLUME 95 fL (79-100); PLATELET COUNT 162 x10^3/uL (140-400); RED BLOOD COUNT 2.15 x10^6/uL (4.30-5.70); RED CELL DISTRIBUTION WIDTH 15.4 % (11.5-14.5); WHITE BLOOD COUNT 12.9 x10^3/uL (4.0-11.0)
[2017-08-30 06:50] LABS: HEMATOCRIT 20.5 % (39.0-53.0); HEMOGLOBIN 6.9 g/dL (13.0-17.5)
[2017-08-30 06:59] LABS: INR 1.1 (0.8-1.1); PARTIAL THROMBOPLASTIN TIME 32 SEC (24-38); PROTHROMBIN TIME PATIENT 13.7 SEC (11.7-14.0)
[2017-08-30] MEDS ORDERED: diphenhydrAMINE HCL 25 MG CAPSULE PO (07:00)
[2017-08-30 07:01] LABS: ALBUMIN 2.1 g/dL (3.4-5.0); ALBUMIN/GLOBULIN RATIO 0.6 (1.0-1.7); ALK PHOS 181 U/L (46-116); ALT (SGPT) 24 U/L (16-63); ANION GAP 1 (6-14); AST (SGOT) 21 U/L (15-37); BLOOD UREA NITROGEN 19 mg/dL (8-26); BUN/CREATININE RATIO 24 (6-20); CALCIUM 7.7 mg/dL (8.5-10.1); CARBON DIOXIDE 36 mmol/L (21-32); CHLORIDE 95 mmol/L (98-107); CREATININE 0.8 mg/dL (0.7-1.3); GLUCOSE 157 mg/dL (70-99); MAGNESIUM 2.5 mg/dL (1.8-2.4); PHOSPHORUS 3.8 mg/dL (2.6-4.7); POTASSIUM 4.1 mmol/L (3.5-5.1); SODIUM 132 mmol/L (136-145); TOTAL BILIRUBIN 0.3 mg/dL (0.2-1.0); TOTAL PROTEIN 5.8 g/dL (6.4-8.2)
[2017-08-30] MEDS: IPRATRPIUM/ALBUTEROL 0.5/2.5MG 3 ML NEBU. NEB ×4 (08:11→19:45)
[2017-08-30] MEDS: amLODIPine BESYLATE 10 MG TABLET PO (09:16)
[2017-08-30 10:15] LABS: IMMEDIATE SPIN CROSSMATCH 1 1
[2017-08-30] MEDS: PANTOPRAZOLE IV PUSH 40 MG VIAL. IVP ×2 (10:43→22:29)
[2017-08-30] MEDS: FUROSEMIDE 20 MG/2 ML VIAL. IVP (13:55)
[2017-08-30] MEDS: TPN PER PHARMACY MC (16:38)
[2017-08-30] MEDS: VANCOMYCIN PER PHARMACY MC (16:41)
[2017-08-30] MEDS: TOTAL PARENTERAL NUTRITION IV (22:28)
[2017-08-30] MEDS: DEXTROSE 70% IV (22:28)
[2017-08-30] MEDS: AMINO ACIDS IV (22:28)
[2017-08-30] MEDS: [UNRECOGNIZED DRUG - OTHER] IV (22:28)
[2017-08-31 02:03] LABS: ANION GAP 2 (6-14); BLOOD UREA NITROGEN 27 mg/dL (8-26); CALCIUM 8.4 mg/dL (8.5-10.1); CARBON DIOXIDE 33 mmol/L (21-32); CHLORIDE 95 mmol/L (98-107); CREATININE 0.9 mg/dL (0.7-1.3); GLUCOSE 138 mg/dL (70-99); MAGNESIUM 2.5 mg/dL (1.8-2.4); PHOSPHORUS 4.3 mg/dL (2.6-4.7); POTASSIUM 4.7 mmol/L (3.5-5.1); SODIUM 130 mmol/L (136-145)
[2017-08-31 02:04] LABS: VANC TR 21.9 mcg/mL (10.0-20.0)
[2017-08-31 02:32] LABS: HEMATOCRIT 24.5 % (39.0-53.0); HEMOGLOBIN 8.3 g/dL (13.0-17.5); MEAN CORPUSCULAR HEMOGLOBIN 31 pg (25-35); MEAN CORPUSCULAR HGB CONC 34 g/dL (31-37); MEAN CORPUSCULAR VOLUME 93 fL (79-100); PLATELET COUNT 154 x10^3/uL (140-400); RED BLOOD COUNT 2.64 x10^6/uL (4.30-5.70); RED CELL DISTRIBUTION WIDTH 15.6 % (11.5-14.5); WHITE BLOOD COUNT 13.6 x10^3/uL (4.0-11.0)
[2017-08-31] MEDS: VANCOMYCIN PER PHARMACY MC ×2 (03:05→14:09)
[2017-08-31] MEDS: MEROPENEM IV Push 1 GM VIAL. IVP ×3 (06:17→21:57)
[2017-08-31] MEDS: IPRATRPIUM/ALBUTEROL 0.5/2.5MG 3 ML NEBU. NEB ×4 (07:24→19:58)
[2017-08-31] MEDS: FUROSEMIDE 40 MG/4 ML VIAL. IVP (08:07)
[2017-08-31] MEDS: PANTOPRAZOLE IV PUSH 40 MG VIAL. IVP ×2 (08:07→21:54)
[2017-08-31] MEDS: amLODIPine BESYLATE 10 MG TABLET PO (08:08)
[2017-08-31] MEDS: TPN PER PHARMACY MC ×2 (12:16→12:27)
[2017-08-31] MEDS: VANCOMYCIN 750 MG in IV NORMAL SALINE 250ML 250 ML IV (12:30)
[2017-08-31] MEDS: FLUCONAZOLE 100 MG TABLET. PO (12:31)
[2017-08-31 13:30] LABS: BASE EXCESS ABG 2 mmol/L (-3-3); HCO3 ABG 29 mmol/L (21-28); PO2 ABG 74 mmHg (65-108); SAT O2 ABG 94 % (92-99)
[2017-08-31 13:36] LABS: PCO2 ABG 61 mmHg (35-46)
[2017-08-31 17:26] LABS: BASE EXCESS ABG 3 mmol/L (-3-3); HCO3 ABG 29 mmol/L (21-28); PCO2 ABG 52 mmHg (35-46); PH ABG 7.36 (7.35-7.45); PO2 ABG 63 mmHg (65-108); SAT O2 ABG 91 % (92-99)
[2017-08-31 17:28] LABS: FIO2 ABG 30
[2017-08-31] MEDS: AMINO ACIDS IV (21:59)
[2017-08-31] MEDS: TOTAL PARENTERAL NUTRITION IV (21:59)
[2017-08-31] MEDS: [UNRECOGNIZED DRUG - OTHER] IV (21:59)
[2017-08-31] MEDS: DEXTROSE 70% IV (21:59)
[2017-09-01 00:04] LABS: POC GLUCOSE 132 mg/dL (70-99)
[2017-09-01] MEDS: VANCOMYCIN 750 MG in IV NORMAL SALINE 250ML 250 ML IV (00:55)
[2017-09-01] MEDS: MEROPENEM IV Push 1 GM VIAL. IVP ×3 (05:50→22:28)
[2017-09-01 06:09] LABS: POC GLUCOSE 98 mg/dL (70-99)
[2017-09-01 06:38] LABS: ANION GAP 5 (6-14); BLOOD UREA NITROGEN 32 mg/dL (8-26); CALCIUM 8.2 mg/dL (8.5-10.1); CARBON DIOXIDE 31 mmol/L (21-32); CHLORIDE 96 mmol/L (98-107); GFR 72.6; GLUCOSE 95 mg/dL (70-99); POTASSIUM 4.9 mmol/L (3.5-5.1); SODIUM 132 mmol/L (136-145)
[2017-09-01 06:48] LABS: HEMATOCRIT 23.5 % (39.0-53.0); HEMOGLOBIN 8.1 g/dL (13.0-17.5); MEAN CORPUSCULAR HEMOGLOBIN 32 pg (25-35); MEAN CORPUSCULAR HGB CONC 34 g/dL (31-37); MEAN CORPUSCULAR VOLUME 93 fL (79-100); PLATELET COUNT 160 x10^3/uL (140-400); RED BLOOD COUNT 2.51 x10^6/uL (4.30-5.70); RED CELL DISTRIBUTION WIDTH 15.5 % (11.5-14.5); WHITE BLOOD COUNT 10.9 x10^3/uL (4.0-11.0)
[2017-09-01] MEDS: IPRATRPIUM/ALBUTEROL 0.5/2.5MG 3 ML NEBU. NEB ×4 (07:23→18:18)
[2017-09-01] MEDS: amLODIPine BESYLATE 10 MG TABLET PO (09:24)
[2017-09-01] MEDS: FLUCONAZOLE 100 MG TABLET. PO (09:24)
[2017-09-01] MEDS: PANTOPRAZOLE IV PUSH 40 MG VIAL. IVP ×2 (09:25→21:12)
[2017-09-01] MEDS: FUROSEMIDE 40 MG/4 ML VIAL. IVP (11:19)
[2017-09-01 12:20] LABS: POC GLUCOSE 99 mg/dL (70-99)
[2017-09-01 13:45] LABS: VANC TR 24.6 mcg/mL (10.0-20.0)
[2017-09-01] MEDS: TPN PER PHARMACY MC (13:57)
[2017-09-01 14:07] LABS: FECAL OB PT NEGATIVE (NEG); NEG OBC FOB NEG; POS OBC FOB POS
[2017-09-01 17:35] LABS: POC GLUCOSE 127 mg/dL (70-99)
[2017-09-01] MEDS: [UNRECOGNIZED DRUG - OTHER] IV (22:28)
[2017-09-01] MEDS: TOTAL PARENTERAL NUTRITION IV (22:28)
[2017-09-01] MEDS: DEXTROSE 70% IV (22:28)
[2017-09-01] MEDS: AMINO ACIDS IV (22:28)
[2017-09-02 00:09] LABS: POC GLUCOSE 123 mg/dL (70-99)
[2017-09-02] MEDS: MEROPENEM IV Push 1 GM VIAL. IVP ×3 (06:17→21:55)
[2017-09-02 06:18] LABS: POC GLUCOSE 112 mg/dL (70-99)
[2017-09-02 06:54] LABS: HEMATOCRIT 23.7 % (39.0-53.0); HEMOGLOBIN 8.2 g/dL (13.0-17.5); MEAN CORPUSCULAR HEMOGLOBIN 32 pg (25-35); MEAN CORPUSCULAR HGB CONC 35 g/dL (31-37); MEAN CORPUSCULAR VOLUME 94 fL (79-100); PLATELET COUNT 171 x10^3/uL (140-400); RED BLOOD COUNT 2.52 x10^6/uL (4.30-5.70); RED CELL DISTRIBUTION WIDTH 15.5 % (11.5-14.5); WHITE BLOOD COUNT 9.9 x10^3/uL (4.0-11.0)
[2017-09-02 07:07] LABS: ALBUMIN 2.1 g/dL (3.4-5.0); ALBUMIN/GLOBULIN RATIO 0.5 (1.0-1.7); ALK PHOS 215 U/L (46-116); ALT (SGPT) 24 U/L (16-63); ANION GAP 2 (6-14); AST (SGOT) 39 U/L (15-37); BLOOD UREA NITROGEN 31 mg/dL (8-26); BUN/CREATININE RATIO 34 (6-20); CALCIUM 8.1 mg/dL (8.5-10.1); CARBON DIOXIDE 34 mmol/L (21-32); CHLORIDE 98 mmol/L (98-107); CREATININE 0.9 mg/dL (0.7-1.3); GLUCOSE 112 mg/dL (70-99); MAGNESIUM 2.6 mg/dL (1.8-2.4); PHOSPHORUS 4.2 mg/dL (2.6-4.7); POTASSIUM 4.8 mmol/L (3.5-5.1); SODIUM 134 mmol/L (136-145); TOTAL BILIRUBIN 0.2 mg/dL (0.2-1.0)
[2017-09-02] MEDS: IPRATRPIUM/ALBUTEROL 0.5/2.5MG 3 ML NEBU. NEB ×4 (07:32→19:44)
[2017-09-02] MEDS: PANTOPRAZOLE IV PUSH 40 MG VIAL. IVP ×2 (10:27→21:56)
[2017-09-02] MEDS: amLODIPine BESYLATE 10 MG TABLET PO (10:27)
[2017-09-02] MEDS: FLUCONAZOLE 100 MG TABLET. PO (10:28)
[2017-09-02 12:09] LABS: POC GLUCOSE 139 mg/dL (70-99)
[2017-09-02] MEDS: TPN PER PHARMACY MC (14:35)
[2017-09-02 17:47] LABS: POC GLUCOSE 95 mg/dL (70-99)
[2017-09-02] MEDS: LACTOBACILLUS RHAMNOSUS GG 1 CAPSULE. PO (21:00)
[2017-09-02 21:32] LABS: POC GLUCOSE 95 mg/dL (70-99)
[2017-09-02] MEDS: [UNRECOGNIZED DRUG - OTHER] IV (21:56)
[2017-09-02] MEDS: TOTAL PARENTERAL NUTRITION IV (21:56)
[2017-09-02] MEDS: DEXTROSE 70% IV (21:56)
[2017-09-02] MEDS: AMINO ACIDS IV (21:56)
[2017-09-03 00:23] LABS: POC GLUCOSE 108 mg/dL (70-99)
[2017-09-03] MEDS: MEROPENEM IV Push 1 GM VIAL. IVP ×3 (05:35→21:25)
[2017-09-03 06:07] LABS: ANION GAP 4 (6-14); BLOOD UREA NITROGEN 29 mg/dL (8-26); CALCIUM 8.1 mg/dL (8.5-10.1); CARBON DIOXIDE 34 mmol/L (21-32); CHLORIDE 99 mmol/L (98-107); CREATININE 0.9 mg/dL (0.7-1.3); GLUCOSE 84 mg/dL (70-99); POTASSIUM 4.6 mmol/L (3.5-5.1); SODIUM 137 mmol/L (136-145)
[2017-09-03 06:10] LABS: PHOSPHORUS 3.7 mg/dL (2.6-4.7)
[2017-09-03 06:10] LABS: MAGNESIUM 2.6 mg/dL (1.8-2.4)
[2017-09-03 06:12] LABS: HEMATOCRIT 24.4 % (39.0-53.0); HEMOGLOBIN 8.4 g/dL (13.0-17.5); MEAN CORPUSCULAR HEMOGLOBIN 32 pg (25-35); MEAN CORPUSCULAR HGB CONC 35 g/dL (31-37); MEAN CORPUSCULAR VOLUME 92 fL (79-100); PLATELET COUNT 181 x10^3/uL (140-400); RED BLOOD COUNT 2.65 x10^6/uL (4.30-5.70); RED CELL DISTRIBUTION WIDTH 15.3 % (11.5-14.5); WHITE BLOOD COUNT 9.6 x10^3/uL (4.0-11.0)
[2017-09-03 06:28] LABS: POC GLUCOSE 94 mg/dL (70-99)
[2017-09-03] MEDS: IPRATRPIUM/ALBUTEROL 0.5/2.5MG 3 ML NEBU. NEB ×4 (07:21→19:11)
[2017-09-03] MEDS: PANTOPRAZOLE IV PUSH 40 MG VIAL. IVP ×2 (09:03→21:25)
[2017-09-03] MEDS: LACTOBACILLUS RHAMNOSUS GG 1 CAPSULE. PO ×2 (09:03→21:26)
[2017-09-03] MEDS: amLODIPine BESYLATE 10 MG TABLET PO (09:04)
[2017-09-03] MEDS: FLUCONAZOLE 100 MG TABLET. PO (09:04)
[2017-09-03] MEDS: TPN PER PHARMACY MC ×2 (12:25→15:47)
[2017-09-03 12:42] LABS: POC GLUCOSE 124 mg/dL (70-99)
[2017-09-03 17:52] LABS: POC GLUCOSE 105 mg/dL (70-99)
[2017-09-03] MEDS: [UNRECOGNIZED DRUG - OTHER] IV (21:26)
[2017-09-03] MEDS: TOTAL PARENTERAL NUTRITION IV (21:26)
[2017-09-03] MEDS: DEXTROSE 70% IV (21:26)
[2017-09-03] MEDS: AMINO ACIDS IV (21:26)
[2017-09-03 23:56] LABS: POC GLUCOSE 116 mg/dL (70-99)
[2017-09-04] MEDS: MEROPENEM IV Push 1 GM VIAL. IVP (04:44)
[2017-09-04 05:33] LABS: ALBUMIN/GLOBULIN RATIO 0.5 (1.0-1.7); ALK PHOS 242 U/L (46-116); ALT (SGPT) 23 U/L (16-63); ANION GAP 0 (6-14); AST (SGOT) 28 U/L (15-37); BLOOD UREA NITROGEN 22 mg/dL (8-26); BUN/CREATININE RATIO 28 (6-20); CALCIUM 8.2 mg/dL (8.5-10.1); CARBON DIOXIDE 36 mmol/L (21-32); CHLORIDE 103 mmol/L (98-107); CREATININE 0.8 mg/dL (0.7-1.3); GLUCOSE 106 mg/dL (70-99); MAGNESIUM 2.4 mg/dL (1.8-2.4); PHOSPHORUS 4.1 mg/dL (2.6-4.7); POTASSIUM 4.7 mmol/L (3.5-5.1); SODIUM 139 mmol/L (136-145); TOTAL BILIRUBIN 0.2 mg/dL (0.2-1.0)
[2017-09-04] MEDS: IPRATRPIUM/ALBUTEROL 0.5/2.5MG 3 ML NEBU. NEB ×2 (07:39→12:12)
[2017-09-04] MEDS: TPN PER PHARMACY MC (08:07)
[2017-09-04] MEDS: amLODIPine BESYLATE 10 MG TABLET PO (09:12)
[2017-09-04] MEDS: LACTOBACILLUS RHAMNOSUS GG 1 CAPSULE. PO (09:12)
[2017-09-04] MEDS: FLUCONAZOLE 100 MG TABLET. PO (09:13)
[2017-09-04] MEDS: PANTOPRAZOLE IV PUSH 40 MG VIAL. IVP (09:14)
[2017-09-04 11:55] LABS: POC GLUCOSE 134 mg/dL (70-99)
[2017-09-04] MEDS ORDERED: MEROPENEM 1 GM in IV NORMAL SALINE 100ML 100 ML IV (14:00)
[2017-09-04] MEDS ORDERED: AMINO ACIDS IV (22:00)
[2017-09-04] MEDS ORDERED: DEXTROSE 70% IV (22:00)
[2017-09-04] MEDS ORDERED: [UNRECOGNIZED DRUG - OTHER] IV (22:00)
[2017-09-04] MEDS ORDERED: TOTAL PARENTERAL NUTRITION IV (22:00)
== END 2017-09-04 15:40 | disposition hospice, home (50) | DRG 177 ==
LOC: ER 15:56 → 2 SOUTH 08-30 19:54
PROC: 30233N1 Transfusion of Nonautologous Red Blood Cells into Peripheral Vein, Percutaneous Approach (ICD-10-PCS; principal; 2017-08-30)
PROC: 5A09357 Assistance with Respiratory Ventilation, Less than 24 Consecutive Hours, Continuous Positive Airway Pressure (ICD-10-PCS; 2017-08-31)
PROC: 5A09357 Assistance with Respiratory Ventilation, Less than 24 Consecutive Hours, Continuous Positive Airway Pressure (ICD-10-PCS; 2017-09-01)
PROC: 5A09357 Assistance with Respiratory Ventilation, Less than 24 Consecutive Hours, Continuous Positive Airway Pressure (ICD-10-PCS; 2017-09-02)
PROC: 5A09357 Assistance with Respiratory Ventilation, Less than 24 Consecutive Hours, Continuous Positive Airway Pressure (ICD-10-PCS; 2017-09-03)
PROC: 5A09357 Assistance with Respiratory Ventilation, Less than 24 Consecutive Hours, Continuous Positive Airway Pressure (ICD-10-PCS; 2017-09-04)
DX: J15.6 Pneumonia due to other Gram-negative bacteria (principal); G92 Toxic encephalopathy; J96.21 Acute and chronic respiratory failure with hypoxia; G93.1 Anoxic brain damage, not elsewhere classified; E46 Unspecified protein-calorie malnutrition; R13.10 Dysphagia, unspecified; I50.33 Acute on chronic diastolic (congestive) heart failure; J96.22 Acute and chronic respiratory failure with hypercapnia; I67.4 Hypertensive encephalopathy; L03.311 Cellulitis of abdominal wall; J44.0 Chronic obstructive pulmonary disease with (acute) lower respiratory infection; J44.1 Chronic obstructive pulmonary disease with (acute) exacerbation; J98.11 Atelectasis; J15.9 Unspecified bacterial pneumonia; I11.0 Hypertensive heart disease with heart failure; F03.90 Unspecified dementia, unspecified severity, without behavioral disturbance, psychotic disturbance, mood disturbance, and anxiety; F17.210 Nicotine dependence, cigarettes, uncomplicated; E78.5 Hyperlipidemia, unspecified; Z66 Do not resuscitate; D50.0 Iron deficiency anemia secondary to blood loss (chronic); D63.8 Anemia in other chronic diseases classified elsewhere; K21.9 Gastro-esophageal reflux disease without esophagitis; N40.0 Benign prostatic hyperplasia without lower urinary tract symptoms; R62.7 Adult failure to thrive; Z51.5 Encounter for palliative care; Y95 Nosocomial condition; Z86.73 Personal history of transient ischemic attack (TIA), and cerebral infarction without residual deficits; Z80.9 Family history of malignant neoplasm, unspecified; Z82.0 Family history of epilepsy and other diseases of the nervous system; Z87.11 Personal history of peptic ulcer disease
CPT/HCPCS: 36415; 36600; 51702; 70450; 71045; 72125; 80048; 80053; 80076; 80202; 81001; 82274; 82553; 82805; 82962; 83605; 83690; 83735; 83880; 84100; 84443; 84484; 85007; 85025; 85027; 85610; 85730; 86850; 86900; 86901; 86920; 87040; 87205; 87804; 87804-59; 92610-GN; 93005; 94640; 94644; 94660; 94760; 96365; 96367; 96375; 97116-GP; 97162-GP; 97166-GO; 97530-GP; 97535-GO; 99291-25; 99406; C9113; J0360; J0456; J0610; J0690; J1940; J2185; J2930; J2997; J3370; J3475; J7030; J7050; J7613; J7620; P9016